=== PATIENT | female | born 1980 | race Caucasian/White ===

== ENCOUNTER 2017-03-26 15:15 | Inpatient (IN) ==
[2017-03-26 16:22] LABS: MANUAL DIFF NEEDED? NO
[2017-03-26 16:35] LABS: BASO% 0.4 % (0.0-0.8); EOS# 0.06 X1000 (0.0-0.7); EOS% 0.7 % (0.0-10.0); HEMOGLOBIN 15.4 g/dL (12.0-16.0); IMM GRAN# 0.03 X1000 (0.0-0.04); IMM GRAN% 0.4 % (0.0-0.5); LYMPH# 1.37 X1000 (1.2-3.4); LYMPH% 16.5 % (20.5-51.1); MCH 28.3 PG (27-31); MCHC 31.4 g/dL (33-37); MCV 89.9 FL (81-99); MONO# 0.71 X1000 (0.11-0.59); MONO% 8.6 % (1.7-9.3); MPV 9.1 FL (7.4-10.4); NEUT% 73.4 % (42.2-75.2); PLT 213 X1000 (130-400); RBC 5.45 XMIL (4.2-5.4)
[2017-03-26 16:38] LABS: INR 0.96; PTT 28.5 Seconds (22.0-36.0)
[2017-03-26] MEDS ORDERED: SOLU-MEDROL IV ONE (16:38)
[2017-03-26] MEDS ORDERED: DUONEB (A & A) INH ONE (16:38)
[2017-03-26 16:48] LABS: AGAP 9; ALBUMIN 3.3 g/dL (3.5-5.0); ALKALINE PHOSPHATASE 154 U/L (32-104); BUN 14 mg/dL (8-22); CALCIUM 8.9 mg/dL (8.8-10.2); CHLORIDE 91 mmol/L (98-107); CK PROFILE 46 U/L (24-173); COSMO 271; GOT 18 U/L (10-30); GPT 31 U/L (10-36); MAGNESIUM 1.6 mg/dL (1.5-2.7); POTASSIUM 4.1 mmol/L (3.5-5.1); SODIUM 130 mmol/L (136-145); TCO2 30 mmol/L (25-35); TOTAL BILIRUBIN 0.18 mg/dL (0.20-1.00); TOTAL PROTEIN 6.8 g/dL (6.3-8.3)
--- NOTE | 2017-03-26 16:49 | ED EKG INTERP ---
This chart was entered by Margaret Sood Scribe, acting as scribe for Michelle Arias MD. EKG Interpretation - EKG Time of EKG reading by physician:: 15:29 EKG Read and Signed by:: Michelle Arias EKG Interpretation (*Must complete 3 of following elements*): Abnormal (low- voltage QRS. possible anterolateral infarct, age undetermined.) Rate: 100 Rhythm: sinus QRS: other (low voltage QRS) This chart was documented by the indicated scribe, (Margaret Sood, Jorgeibe) and accurately reflects the services I performed and decisions made by me, Michelle Arias MD, as attested by the provider's signature.
--- NOTE | 2017-03-26 17:05 | EKG Report ---
Test Performed on : 03/26/2017 3:29:29 PM Test Reason : SOB Blood Pressure : / mmHG Vent. Rate : 100 BPM Atrial Rate : 100 BPM P-R Int : 146 ms QRS Dur : 068 ms QT Int : 354 ms P-R-T Axes : 041 050 053 degrees QTc Int : 456 ms Normal sinus rhythm. Low voltage QRS Possible Anterolateral infarct (cited on or before 02-AUG-2010) Abnormal ECG When compared with ECG of 09-JUN-2016 04:45, No significant change was found Unconfirmed Result
[2017-03-26 17:10] LABS: ALLEN TEST YES; BE 7.9 mmoll (-3.0-3.0); BLOOD TYPE ARTERIAL; DRAW SITE R RADIAL; METHB 1.2 % (0.0-1.5); O2(CT) 18.2 mL/dL (15.0-23.0); PO2(98.6) 52 mmHg (60-100); SAMPLE BLOOD; SAO2 91.4 % (95.0-100.0); THB 15.6 g/dL (11.5-17.4); pH(98.6) 7.35 (7.35-7.45)
[2017-03-26 17:14] LABS: MODALITY ROOM AIR
[2017-03-26 17:15] LABS: PCO2(98.6) 66 mmHg (35-45)
--- NOTE | 2017-03-26 17:30 | PROVIDER DOCUMENTATION ---
This chart was entered by Margaret Sood Scribe, acting as scribe for Michelle Arias MD. HPI-Respiratory General - General Chief Complaint: Shortness of Breath Stated Complaint: TROUBLE BREATHING Time Seen by Provider: 03/26/17 16:15 Source: patient Allergies/Adverse Reactions: Patient Allergies Allergy/AdvReac Type Severity Reaction Status Date / Time Sulfa (Sulfonamide Allergy Intermediate HIVES Verified 03/26/17 16:11 Antibiotics) tramadol AdvReac Mild PSEUDOSEIZU Verified 03/26/17 16:11 RES Home Medications: Home Medication List Medication Instructions Recorded Confirmed Last Taken Type Insulin Glargine [Lantus] 30 unit SUBQ QHS #1 insuln.pen 08/08/16 03/26/17 Rx Insulin Lispro [Humalog] 30 unit SQ TID #1 cartridge 08/08/16 03/26/17 Rx - History of Present Illness-Resp Nature of Presenting Problem: 36 yo WF presents to ED with cc of SOB and swelling. Pt also reports that last night she had chest pain that radiated down her L arm, in addition to the SOB. She denies chest pain at this time. Pt reports she was on Lasix 40 mg x 1/day for 2 months but quit 14 days ago due to not seeing improvement. Pt has COPD but is not on O2 at home. Pt reports that she still smokes. Pt denies hx of CHF and states she has not had a stress test. Pt has hx of type 1 diabetes controlled with insulin but reports her sugar has been running high lately. Pt also reports generalized abdominal tenderness. Severity in ED: reports: moderate Onset/Duration: reports: abrupt, last night Timing: reports: still present Cough Quality/Degree: reports: productive cough Current Respiratory Medication Therapy: Initiated none Modifying Factors: improves with: oxygen Associated Symptoms: reports: chest pain/soreness (last night; resolved as of today), cough, shortness of breath Review of Systems - Adult - REVIEW OF SYSTEMS - ADULT Constitutional: reports: no symptoms reported. denies: chills, fever Eyes: reports: no symptoms reported. denies: blurred vision, double vision Ears, Nose, Mouth & Throat: reports: no symptoms reported. denies: ear pain, nose pain Cardiovascular: reports: chest pain (resolved prior to arrival) Respiratory: reports: cough, shortness of breath Gastrointestinal: reports: abdominal pain (generalized). denies: nausea, vomiting Genitourinary: reports: no symptoms reported. denies: dysuria, frequency Musculoskeletal: reports: no symptoms reported. denies: bone pain, joint pain Integumentary: reports: no symptoms reported. denies: hives, itching Neurological: reports: no symptoms reported. denies: dizziness/vertigo, loss of balance Psychiatric: reports: no symptoms reported. denies: anxiety, depression Endocrine: reports: no symptoms reported. denies: cold intolerance, heat intolerance Hematologic/Lymphatic: reports: no symptoms reported. denies: blood clots, lymphedema Allergic/Immunologic: reports: no symptoms reported. denies: allergic reactions , eczema All Other Systems: Reviewed and Negative Past History - Adult - PAST MEDICAL HISTORY-ADULT Review of Records: reports: Old Records Reviewed, Nursing Assessment Review, Medications Reviewed Major Childhood Illnesses: reports: denies history Cardiovascular: reports: HTN Respiratory: reports: COPD, sleep apnea, other (has home o2) Gastrointestinal: reports: Crohn's, GERD, inflammatory bowel disease, other ( followed by Dr. 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) Psychiatric: reports: anxiety, depression, psychiatric problems Endocrine/Immune: reports: Diabetes Other Conditions: reports: denies history - PRIOR SURGERIES/PROCEDURES Surgical/Procedure History: reports: appendectomy, cholecystectomy (01/2016), C- section, breast (lumpectomy, biopsy) - IMMUNIZATION STATUS Childhood Immunizations: UTD, See Nurse Assessment Flu Vaccine: See Nurse Assessment - FAMILY HISTORY Family History: reviewed, not pertinent Physical Exam-General - PHYSICAL EXAM-ADULT Initial Vital Signs Reviewed: Yes - CONSTITUTIONAL General Appearance: appears well, alert, mild distress - EYES Eyes: PERRL/EOMI, pink conjunctivae - HEAD, EARS, NOSE, MOUTH & THROAT HENMT: normocephalic/atraumatic, moist mucous membranes - NECK Neck: non-tender, full range of motion, supple - CARDIOVASCULAR Cardiovascular: tachycardia - GASTROINTESTINAL (ABDOMEN) Abdominal Exam: soft, tenderness (generalized) - LYMPHATIC Lymphatic: no adenopathy - MUSCULOSKELETAL Back Exam: normal inspection Extremity: normal range of motion, normal gait, no pedal edema - SKIN Integumentary: normal color, normal turgor - NEUROLOGIC Neurologic: grossly normal, no motor/sensory deficits - PSYCHIATRIC Psych/Mental Status: normal mood/affect, normal thought content, normal thought process, oriented x 3 Progress - PLAN OF CARE/RESULTS Progress/Plan/Lab Results: Vital Signs - 8 hr 03/26/17 15:34 03/26/17 16:36 Temperature 98.2 F Pulse Rate 108 H 97 H Respiratory Rate 22 22 Blood Pressure 128/82 O2 Sat by Pulse Oximetry 90 L 90 L Laboratory Results - last 24 hr 03/26/17 03/26/17 03/26/17 15:09 15:09 15:09 WBC 8.29 RBC 5.45 H Hgb 15.4 Hct 49.0 H MCV 89.9 MCH 28.3 MCHC 31.4 L RDW Std Deviation 15.2 H Plt Count 213 MPV 9.1 Immature Gran % (Auto) 0.4 Neut % (Auto) 73.4 Lymph % (Auto) 16.5 L Emmons % (Auto) 8.6 Eos % (Auto) 0.7 Baso % (Auto) 0.4 Immature Gran # (Auto) 0.03 Neut # (Auto) 6.09 Lymph # (Auto) 1.37 Emmons # (Auto) 0.71 H Eos # (Auto) 0.06 Baso # (Auto) 0.03 PT INR PTT (Actin FS) Specimen Type Sample Site pH pCO2 pO2 HCO3 Base Excess Oxyhemoglobin ABG O2 Sat (Calculated) ABG O2 Saturation ABG Carboxyhemoglobin ABG Methemoglobin Jaiden Test A-a O2 Difference Total Hemoglobin Lactate Blood Gas Modality FiO2 % Sodium 130 L Potassium 4.1 Chloride 91 L Carbon Dioxide 30 Anion Gap 9 BUN 14 Creatinine 0.6 Estimated GFR/1.73 m2 > 60 BUN/Creatinine Ratio 23 Glucose 273 H Calculated Osmolality 271 Calcium 8.9 Magnesium 1.6 Total Bilirubin 0.18 L AST 18 ALT 31 Alkaline Phosphatase 154 H Creatine Kinase 46 Troponin T [id number]-S-Zhihyyfgygv Pept 114 Total Protein 6.8 Albumin 3.3 L Globulin 3.5 Albumin/Globulin Ratio 0.9 Plasma Lactate 03/26/17 03/26/17 03/26/17 15:09 15:09 15:09 WBC RBC Hgb Hct MCV MCH MCHC RDW Std Deviation Plt Count MPV Immature Gran % (Auto) Neut % (Auto) Lymph % (Auto) Emmons % (Auto) Eos % (Auto) Baso % (Auto) Immature Gran # (Auto) Neut # (Auto) Lymph # (Auto) Emmons # (Auto) Eos # (Auto) Baso # (Auto) PT 10.0 INR 0.96 PTT (Actin FS) 28.5 Specimen Type Sample Site pH pCO2 pO2 HCO3 Base Excess Oxyhemoglobin ABG O2 Sat (Calculated) ABG O2 Saturation ABG Carboxyhemoglobin ABG Methemoglobin Jaiden Test A-a O2 Difference Total Hemoglobin Lactate Blood Gas Modality FiO2 % Sodium Potassium Chloride Carbon Dioxide Anion Gap BUN Creatinine Estimated GFR/1.73 m2 BUN/Creatinine Ratio Glucose Calculated Osmolality Calcium Magnesium Total Bilirubin AST ALT Alkaline Phosphatase Creatine Kinase Troponin T < 0.010 Imc-J-Squqxmpayba Pept Total Protein Albumin Globulin Albumin/Globulin Ratio Plasma Lactate 1.7 03/26/17 16:38 WBC RBC Hgb Hct MCV MCH MCHC RDW Std Deviation Plt Count MPV Immature Gran % (Auto) Neut % (Auto) Lymph % (Auto) Emmons % (Auto) Eos % (Auto) Baso % (Auto) Immature Gran # (Auto) Neut # (Auto) Lymph # (Auto) Emmons # (Auto) Eos # (Auto) Baso # (Auto) PT INR PTT (Actin FS) Specimen Type ARTERIAL Sample Site R RADIAL pH 7.35 pCO2 66 H* pO2 52 L HCO3 30.6 H Base Excess 7.9 H Oxyhemoglobin 83.1 L* ABG O2 Sat (Calculated) 18.2 ABG O2 Saturation 91.4 L ABG Carboxyhemoglobin 7.90 H* ABG Methemoglobin 1.2 Jaiden Test YES A-a O2 Difference 15.0 Total Hemoglobin 15.6 Lactate 1.20 Blood Gas Modality ROOM AIR FiO2 % 21.0 Sodium Potassium Chloride Carbon Dioxide Anion Gap BUN Creatinine Estimated GFR/1.73 m2 BUN/Creatinine Ratio Glucose Calculated Osmolality Calcium Magnesium Total Bilirubin AST ALT Alkaline Phosphatase Creatine Kinase Troponin T Jnw-[id number]-Dduqlpzfozs Pept Total Protein Albumin Globulin Albumin/Globulin Ratio Plasma Lactate Orders Category Date Time Status Cardiac Monitoring DIRECTED Care 03/26/17 16:14 Active ED: Urine Bedside ORDERED Care 03/26/17 16:19 Active Oxygen Therapy- ED Nursing DIRECTED Care 03/26/17 16:14 Active Saline Loc NOW Care 03/26/17 16:14 Active CHEST-2 VIEWS [RAD] Stat Exams 03/26/17 16:14 Ordered ABG [RESP] Routine Lab 03/26/17 16:38 Completed CBC WITH ELECTRONIC DIFF [HEME] Stat Lab 03/26/17 15:09 Completed CK PROFILE [SP CHEM] Stat Lab 03/26/17 15:09 Completed COMPREHENSIVE METABOLIC PANEL [CHEM] Stat Lab 03/26/17 15:09 Completed D-DIMER [CHEM] Stat Lab 03/26/17 15:09 Received LACTATE, PLASMA [CHEM] Stat Lab 03/26/17 15:09 Completed MAGNESIUM [CHEM] Stat Lab 03/26/17 15:09 Completed PRO B-NATRIURETIC PEPTIDE Stat Lab 03/26/17 15:09 Completed PROTIME WITH INR [COAG] Stat Lab 03/26/17 15:09 Completed PTT [COAG] Stat Lab 03/26/17 15:09 Completed TROPONIN T Stat Lab 03/26/17 15:09 Completed Albuterol 2.5MG/Ipratrop 0.5MG [Duoneb (A & A)] Med 03/26/17 16:38 Discontinued 3 ml INH NOW ONE Methylprednisolone Sod Succ [Solu-Medrol] Med 03/26/17 16:38 Discontinued 125 mg IV NOW ONE Aerosol Treatments Routine Oth 03/26/17 16:38 Active Aerosol Treatments Stat Oth 03/26/17 16:38 Active EKG [EKG] Stat Ther 03/26/17 16:14 Draft Result Diagrams: 03/26/17 15:09 03/26/17 15:09 - CONSULTS/PCP/HOSPITALIST Notification #1 *Consult/PCP/Hospitalist*: Dr. Marino Time Discussed: 17:50 Consult Disposition: Admit - CHANGE OF SHIFT REPORT (ED Provider) Time of Transfer: 18:00 Departure - Departure Time of Disposition Decision: 17:51 DIAGNOSIS: Respiratory distress, CO2 retention Disposition: ADMITTED INPATIENT 09 Certified Medical Emergency: Emergent Condition: Stable Referrals and Follow-Ups: Andreea Wright CRNP [Primary Care Provider] - - Critical Care Note This patient required my direct & personal management of CC.: No This chart was documented by the indicated scribe, (Margaret Sood Scribe) and accurately reflects the services I performed and decisions made by me, Michelle Arias MD, as attested by the provider's signature.
[2017-03-26] MEDS ORDERED: NS 1,000 ML IV SCH (19:03)
--- NOTE | 2017-03-26 19:13 | HISTORY AND PHYSICAL ---
CHIEF COMPLAINT: Shortness of breath. HISTORY OF PRESENT ILLNESS: Mrs. Tan is an unfortunate 36-year-old, female with a history of morbid obesity, type 1 diabetes, COPD, bipolar disorder and others, who presents with worsening shortness of breath over the past month and a half. Acutely worse last night. Patient states she is essentially chronically short of breath but yesterday she started having fairly severe shortness of breath which made it difficult for her to do most any of her activities of daily living. Mrs. Tan also reports that she has chest pain quite often that occurs randomly. It is not associated with exertion. She had an acute episode last night that woke her up at around 1 in the morning. This was described as midsternal, radiating down to the left arm. It lasted hours until she came to the ER and was given oxygen which relieved the pain. This is not associated with any nausea, vomiting, or diaphoresis. She reports worsening dyspnea with cough and clear sputum production. She reports a low-grade fever. She also reports lower extremity edema and orthopnea. Mrs. Tan has multiple comorbidities that are untreated secondary to her social situation. She has not seen Dr. Macario in multiple months because she does not have any way to get to his office. She continues to smoke a pack and half to 2 packs a day and she is not on any current antihypertensives or any antihyperlipidemic. In fact the only medicine that she does take on a regular basis is her insulin. Mrs. Tan states that she lives alone and is having a difficult time doing simple activities of daily living such as wiping herself after she has a bowel movement because she cannot. She came to the ER today for evaluation. Her ABG showed hypercarbic respiratory failure and hypoxemia with a carboxyhemoglobin of almost 8. The rest of her laboratory data is unremarkable and she still has a chest x-ray that is pending. Troponins are negative and her EKG shows sinus tachycardia without acute ST or T abnormalities. We are now going to admit her for further treatment and evaluation. PAST MEDICAL HISTORY: 1. Type 1 diabetes diagnosed at age 2. 2. COPD. 3. Obesity hypoventilation syndrome. 4. Hypertension. 5. Hyperlipidemia. 6. Glaucoma. 7. Neuropathy. 8. Left eye blindness. 9. Bipolar disorder. 10. Anxiety. 11. Nicotine dependence. 12. History of polysubstance dependence. PAST SURGICAL HISTORY: Patient has had multiple procedures done on her left eye. She has had a C- section, appendectomy, cholecystectomy, multiple cyst excisions from her chest. SOCIAL HISTORY: Patient is and she lives alone. She has a child but she does not have custody. She is on disability. FAMILY HISTORY: Noncontributory. REVIEW OF SYSTEMS: Fourteen-point review of systems obtained and found to be negative with the exception of the HPI. ALLERGIES: To sulfa and tramadol. HOME MEDICATIONS: Lantus 30 units subcu at bedtime and Humalog 30 units subcutaneous t.i.d. PHYSICAL EXAMINATION: VITAL SIGNS: Blood pressure is 128/82, heart rate is 108, respiratory rate is 22. O2 saturations 90% on room air. Temperature is 98.2 degrees. GENERAL: This is a morbidly obese, and disheveled appearing 36-year-old, female, lying in the hospital bed, tearful but in no acute distress. NEUROLOGIC: The patient is awake, alert, oriented without focal deficits. HEENT: Head is atraumatic and normocephalic. NECK: Supple. Trachea is midline. Oral mucosa is a bit dry. CHEST: Diminished throughout but otherwise clear to auscultation bilaterally. CV: Regular rate and rhythm. S1, S2 is noted. GI: Is soft and obese and nontender. EXTREMITIES: With trace edema. Pulses are palpable but diminished bilaterally. DIAGNOSTIC DATA: Chest x-ray is pending. WBC 8.29, hemoglobin 15.4, hematocrit 49, platelet count 213,000. INR 0.96. D-dimer 0.27. ABG on room air pH 7.35, CO2 66, O2 52, bicarb 30.6. Oxyhemoglobin 83.1, carboxyhemoglobin 7.9. Sodium 130, potassium 4.1, chloride 91, CO2 30. Anion gap 9. BUN 14. Creatinine 0.6. Glucose is 273. Calcium 8.9, bilirubin 0.18. AST 18, ALT 31, alkaline phosphatase 154. CK 46, troponin negative. Albumin 3.3. ASSESSMENT AND PLAN: 1. Acute hypercarbic respiratory failure: This is multifactorial secondary to COPD exacerbation, hypoventilation syndrome and continued nicotine dependence. We will start oxygen, nebulizers, steroids and antibiotics. We will also consult with Dr. Macario. 2. Chronic obstructive pulmonary disease exacerbation: As above. We will start Rocephin at around the clock and p.r.n. nebulizers, IV steroids and antibiotics. 3. Chest pain: Atypical but the patient certainly has multiple risk factors, so we will trend her enzymes, check an echocardiogram and make a decision on possible ischemic workup after all her enzymes have come back. We will make sure she is on aspirin and statin and hold the beta- cyndi for now given her COPD exacerbation. 4. Hyponatremia: We will check urine studies and treat accordingly. Overall she is hypovolemic to euvolemic so she is likely a bit dry. 5. Insulin-dependent diabetes mellitus: Will check hemoglobin A1c. Continue her home insulin and start pattern sugars and sliding scale insulin. 6. Hypertension: We will start the patient on lisinopril 5 mg daily given her comorbidities. 7. Hyperlipidemia: We will check a lipid panel and start on high intensity statin. 8. Bipolar disorder/anxiety: The patient is currently on a shot 1 time a month of some antipsychotic, not exactly sure. We are trying to ascertain the name of that. So for now, we will hold off on any medications unless the patient becomes acutely agitated. 9. Glaucoma. We will need to verify her eyedrops and we will continue those. Overall that is stable. She is not having any overt headache or eye pain. 10. Nicotine dependence: Patient has been advised to quit smoking. We will write a nicotine patch and continue daily cessation education. 11. Medical noncompliance: We have discussed the long-term risks of medical noncompliance along with nicotine cessation with the patient. She understands and we will consult social work for possible financial and possibly home health needs. 12. DVT prophylaxis with Lovenox. Further recommendations to follow. Dictated by MELISSA Michael for Alfredo Gunderson MD cc: MELISSA Michael MD
[2017-03-26] MEDS ORDERED: INSULIN PEN NEEDLES ONE (21:52)
[2017-03-26] MEDS: ASPIRIN PO SCH (21:55)
[2017-03-26] MEDS: LOVENOX SUBQ SCH (21:55)
[2017-03-26] MEDS: NICODERM PATCH TD SCH (21:55)
[2017-03-26] MEDS: ROCEPHIN 1 GM/NS 1 GM/50 ML IVPB IV SCH (21:55)
[2017-03-26] MEDS: LANTUS SUBQ SCH (21:56)
[2017-03-26] MEDS: LIPITOR PO SCH (21:58)
[2017-03-26] MEDS: HUMALOG SUBQ SCH (22:38)
[2017-03-27] MEDS: SOLU-MEDROL IV SCH ×3 (02:38→18:30)
[2017-03-27] MEDS ORDERED: TYLENOL PO PRN (03:45)
[2017-03-27 05:07] LABS: HEMATOCRIT 49.7 % (37.0-47.0); HEMOGLOBIN 15.8 g/dL (12.0-16.0); MCH 28.1 PG (27-31); MCHC 31.8 g/dL (33-37); MCV 88.3 FL (81-99); MPV 9.7 FL (7.4-10.4); RBC 5.63 XMIL (4.2-5.4)
[2017-03-27 05:41] LABS: AGAP 14; BUN 15 mg/dL (8-22); CALCIUM 8.7 mg/dL (8.8-10.2); CHLORIDE 95 mmol/L (98-107); COSMO 290; HDL 60 mg/dL (45-65); LDL 72 mg/dL; POTASSIUM 4.5 mmol/L (3.5-5.1); SODIUM 136 mmol/L (136-145); TCO2 27 mmol/L (25-35); TRIGLYCERIDES 71 mg/dL (35-135); VLDL 14 mg/dL
[2017-03-27] MEDS: HUMALOG SUBQ SCH ×5 (06:05→20:39)
--- NOTE | 2017-03-27 07:48 | Diag Imaging Result Doc PS360 ---
CHEST-2 VIEWS - 03/26/2017 INDICATION: CP TECHNIQUE: COMPARISON: 01/23/2017 FINDINGS: Heart size is slightly enlarged. Pulmonary vascularity is grossly normal. No focal infiltrates, pneumothorax, or pleural effusion. IMPRESSION: Cardiomegaly. Electronically signed by Marc Oshea 03/27/2017 7:46 AM
[2017-03-27] MEDS ORDERED: INSULIN LISPRO 30 UNIT SQ SCH (09:00)
[2017-03-27] MEDS: LANTUS SUBQ SCH ×2 (10:24→20:39)
[2017-03-27] MEDS: NICODERM PATCH TD SCH (10:24)
[2017-03-27] MEDS: ASPIRIN PO SCH (10:24)
[2017-03-27] MEDS: PRINIVIL PO SCH (10:25)
--- NOTE | 2017-03-27 12:34 | CONSULTATION ---
DATE OF CONSULTATION: 03/27/2017 REFERRING PHYSICIAN: Dr. Alfredo Gunderson. CHIEF COMPLAINT: Evaluation for chronic obstructive pulmonary disease, sleep apnea, chronic respiratory failure. HISTORY OF PRESENTING ILLNESS: Ms. Tan is known to our practice. She is a 36-year-old female with bipolar disorder, depression, COPD, diabetes, morbid obesity, sleep apnea, and she does not have a CPAP machine I believe because of difficulty with her insurance, Medicaid, to provide it for her to my best knowledge. In any case, Ms. Tan came into the hospital with shortness of breath. PAST MEDICAL HISTORY: Polysubstance abuse, active smoker, anxiety, bipolar disorder, depression, left eye blindness, neuropathic glaucoma, hyperlipidemia, hypertension, obesity, and sleep apnea, COPD, type 1 diabetes. PAST SURGICAL HISTORY: Appendectomy, section, multiple cyst excisions. SOCIAL HISTORY: Active smoker, lives alone. Needs CPAP machine but does not have it because of her insurance, and we tried different promotional advertising assistant programs in the past. FAMILY HISTORY: COPD. REVIEW OF SYSTEMS: As detailed in history of presenting illness, otherwise, noncontributory. ALLERGIES: Possibly to tramadol, sulfa, antibiotics. MEDICATIONS IN THE HOSPITAL: Reviewed, and they include 1. Ceftriaxone. 2. Lovenox for DVT prophylaxis. 3. Insulin. 4. Prinivil. 5. Solu-Medrol. 6. Tylenol. PHYSICAL EXAMINATION: Vital Signs: Noted. General: Awake. Emotions are a little labile, and she is easy to tear. Head and Neck: Trachea midline. Chest: Reduced air entry. Cardiac: S1, S2. Abdomen: Nontender. Extremity Examination: +1 pedal edema. Neurologic: Awake, communicative. LABORATORY AND INVESTIGATIONS: ABG, CBC, CMP, chest x-ray reviewed. pH 7.35, pCO2 of 66, PO2 of 52. Chest x-ray shows cardiomegaly. ASSESSMENT AND PLAN: A 36-year-old female with 1. Chronic respiratory failure. 2. Sleep apnea. 3. Chronic obstructive pulmonary disease. 4. Shortness of breath. She does not have a home CPAP machine because of her insurance not providing it, and we have tried promotional advertising assistant programs in the past. She is an active smoker and agrees with steroids, antibiotics, and current management. We will add BiPAP in the hospital. Thank you for the courtesy of this consult. cc: Luis Macario MD
--- NOTE | 2017-03-27 16:07 | PROGRESS NOTE ---
DATE: 03/27/2017 SUBJECTIVE: Ms. Tan is breathing a little better. She is concerned that she is not able to wipe herself and needs some help with cleaning. Her stools are loose. OBJECTIVE: Vital signs: Temperature 98.3 degrees, pulse 64, respirations 17, blood pressure 127/60. HEENT: Pupils are equal and round. Lungs: Clear in all lung pinon. Cardiovascular: Regular rhythm and rate, without murmur or S3. Abdomen: Soft. Skin: Warm and dry. LABORATORY: White count 13,100, hematocrit 49, platelet count 203,000. Chemistry: Sodium 136, potassium 4.5, chloride 95, bicarbonate 27, BUN 15, creatinine 0.7, and blood sugar was 411. Blood sugars have been running a little high, 400s and 300s. ASSESSMENT AND PLAN: 1. By way of review, I think this is a patient of MELISSA Yepez. A 36-year-old white female with history of morbid obesity, diabetes mellitus type 1, chronic obstructive pulmonary disease, bipolar disorder, and others, who presented with worsening shortness of breath over the last 1-1/2 months, acutely worse last night. The patient states she has essentially been chronically short of breath. Reports that she has some chest pain quite often that occurs. She was admitted with acute hypercarbic respiratory failure, multifactorial, chronic obstructive pulmonary disease exacerbation, hypoventilation with obesity, and nicotine dependence. Started her on O2, nebulizers, steroids, and antibiotics. 2. Chronic chronic obstructive pulmonary disease exacerbation, on Rocephin and IV steroids. 3. Chest pain, nonspecific. Multiple risk factors for musculoskeletal-type pain. Continue to follow clinically. Does not appear to have signs of cardiac ischemia. 4. Hyponatremia, supplemented. 5. Insulin-dependent diabetes mellitus. We will continue just sugars. They are running a little high at this time, so will follow with pattern sugars and sliding scale. 6. Hypertension. Blood pressure well controlled. 7. Hyperlipidemia. 8. Bipolar disorder. 9. Nicotine dependence, on nicotine patch, I believe. REVIEW OF ORDERS: I do not know that I see any change at this point. She is on Tylenol, aspirin 81 mg a day, Lipitor 40 mg at bedtime, Lantus 30 units subcutaneously at bedtime and 25 units daily, Prinivil 5 mg a day, methylprednisolone 60 mg IV q.8 hours, nicotine patch 21 mg a day, normal saline at 75 mL an hour, and Rocephin 1 g q.24 hours. cc: Jaiden Poole MD
--- NOTE | 2017-03-27 17:21 | ECHO REPORT ---
ORDER DATE: 03/26/2017 ECHOCARDIOGRAM: MEASUREMENTS: Left ventricular end-diastolic diameter 4.9, end systolic diameter 3.2, septal thickness 1.0, posterior wall thickness 1.0, left atrium 3.2, aortic root 3.2. SUMMARY: 1. Technically difficult study due to limited acoustic window quality. Intravenous echo contrast agent Definity was administered to enhance endocardial definition and for purposes of assessment of left ventricular systolic function. 2. Aortic, mitral, tricuspid and pulmonic valves are without structural multi evident with trace mitral regurgitation and trace tricuspid regurgitation. Peak instantaneous gradient across aortic valve is less than 10 mmHg. There is estimated systolic PA pressure by Doppler is 20- 25 mmHg. Aortic root is normal size. 3. Normal left ventricular dimensions suggested. Estimated left ventricular ejection fraction appears to be least 55%. No regional wall motion abnormalities are evident. Left atrium, right atrium and right ventricle normal size with normal right ventricular systolic function. 4. No pericardial effusion. 5. Inferior vena cava not seen. 6. Sinus rhythm during study. CONCLUSIONS: 1. Technically difficult study. 2. No significant valvular abnormality evident. 3. Normal left ventricular systolic function without wall motion abnormality evident. cc: MD Kyle Wahl CRNP
[2017-03-27] MEDS: LOVENOX SUBQ SCH (20:38)
[2017-03-27] MEDS: LIPITOR PO SCH (20:38)
[2017-03-27] MEDS: ROCEPHIN 1 GM/NS 1 GM/50 ML IVPB IV SCH (20:38)
[2017-03-28] MEDS: SOLU-MEDROL IV SCH ×2 (00:31→08:27)
[2017-03-28 06:22] LABS: HEMATOCRIT 49.3 % (37.0-47.0); HEMOGLOBIN 15.6 g/dL (12.0-16.0); MCH 28.2 PG (27-31); MCHC 31.6 g/dL (33-37); MPV 9.5 FL (7.4-10.4); RBC 5.54 XMIL (4.2-5.4)
[2017-03-28] MEDS ORDERED: INSULIN PEN NEEDLES ONE (06:27)
[2017-03-28] MEDS: HUMALOG SUBQ SCH ×2 (06:29→11:18)
[2017-03-28 06:45] LABS: AGAP 11; BUN 15 mg/dL (8-22); CALCIUM 8.5 mg/dL (8.8-10.2); CHLORIDE 94 mmol/L (98-107); COSMO 286; POTASSIUM 5.1 mmol/L (3.5-5.1); SODIUM 133 mmol/L (136-145); TCO2 28 mmol/L (25-35)
[2017-03-28] MEDS: PRINIVIL PO SCH (08:26)
[2017-03-28] MEDS: ASPIRIN PO SCH (08:27)
[2017-03-28] MEDS: LANTUS SUBQ SCH (08:27)
[2017-03-28] MEDS: NICODERM PATCH TD SCH (08:27)
[2017-03-28 09:46] LABS: ALLEN TEST YES; BE 5.2 mmoll (-3.0-3.0); BLOOD TYPE ARTERIAL; DRAW SITE R RADIAL; METHB 0.9 % (0.0-1.5); O2(CT) 21.7 mL/dL (15.0-23.0); PO2(98.6) 80 mmHg (60-100); SAMPLE BLOOD; SAO2 96.7 % (95.0-100.0); THB 16.3 g/dL (11.5-17.4); pH(98.6) 7.34 (7.35-7.45)
[2017-03-28 09:49] LABS: MODALITY CANNULA; PCO2(98.6) 62 mmHg (35-45)
[2017-03-28 12:11] VITALS: BP 146/61
--- NOTE | 2017-03-29 04:52 | DISCHARGE SUMMARY ---
ADMISSION DATE: 03/26/2017 DISCHARGE DATE: 03/28/2017 DISPOSITION: Home. FOLLOWUP: 1. Dr. Macario. 2. Ms. Andreea Wright. CONSULTATIONS DURING THIS ADMISSION: Pulmonary medicine was consulted. Patient was seen by Dr. Macario. INVASIVE PROCEDURES DONE DURING THIS ADMISSION: None. IMAGING STUDIES OF SIGNIFICANCE: A chest x-ray was done which only showed cardiomegaly. An echocardiogram was done that showed a technically difficult study. No significant valvular abnormality and no left ventricular systolic function abnormality was noted. ADMISSION DIAGNOSES: 1. Acute hypercarbic respiratory failure. 2. Chronic obstructive pulmonary disease. 3. Hyponatremia. DISCHARGE DIAGNOSES: 1. Acute on chronic respiratory failure (both hypercarbic and hypoxemic). 2. Chronic obstructive pulmonary disease exacerbation. 3. Active tobacco use. 4. Morbid obesity. 5. Sleep apnea. 6. Obesity hypoventilation syndrome. 7. Insulin-dependent diabetes mellitus. 8. Dyslipidemia. 9. Bipolar/anxiety disorder. DISCHARGE MEDICATIONS: 1. Insulin glargine 30 units at night and 25 units in the morning. 2. Gabapentin 600 b.i.d. 3. Losartan 100 mg daily. 4. Atorvastatin 40 mg at bedtime. 5. Prednisone 20 mg daily. 6. Aspirin 81 mg daily. 7. Azithromycin 250 p.o. daily. FOLLOWUP RECOMMENDATIONS: Patient will need to follow up with Dr. Macario. She also will be needing oxygen in the short-term since her PO2 was 52 and her saturation was also remarkably low on presentation. It has been improved on oxygen and she will need that at least for the short-term. The patient has been counseled on smoking cessation and adequate weight management. PRESENTING COMPLAINT: Shortness of breath. HISTORY OF PRESENTING COMPLAINT: Ms. Tan is a 36-year-old, female, morbidly obese, with a lot of multiple comorbidities who presented because of shortness of breath. The patient has been smoking more than a pack per day and she continues to smoke. She was initially evaluated and was found to be in COPD exacerbation. Was admitted for medical care. HOSPITAL COURSE: The patient responded pretty well to standard care with adequate pulmonary toilette, steroids, antibiotics, and bronchodilation therapy. Blood glucose was also a little out of control but, according to the nurses, patient has just been eating [id number] on which she was counseled. Upon presentation, the patient's carboxyhemoglobin level was over 8 which is consistent with active smoking and she has been counseled. Today, she refers to be feeling a whole lot better. Breathing has improved. Physical exam of chest, there is no more rhonchi. Her vitals have also been reviewed and all unremarkable. Lab work has also been reviewed. The patient is deemed stable to be discharged. She is going to be discharged in a very stable condition and she will follow up with Dr. Macario and Ms. Andreea Wright. At the time of discharge, there are not any pending labs or imaging studies. Time spent for discharge was 37 minutes. cc: Alfredo Gunderson MD
[2017-03-29] MEDS ORDERED: ZITHROMAX PO SCH (09:00)
[2017-03-29] MEDS ORDERED: PREDNISONE PO SCH (09:00)
== END 2017-03-28 16:20 | disposition home health service (06) ==
LOC: ED 15:15 → SUATTDRO 18:44 → 4N 18:44
PROVIDERS: ATTEND Internal Medicine

== ENCOUNTER 2018-12-08 14:37 | Inpatient (IN) ==
--- NOTE | 2018-12-08 15:43 | Diag Imaging Result Doc PS360 ---
SHOULDER-LEFT - 12/08/2018 INDICATION: fall TECHNIQUE: Four views COMPARISON: None FINDINGS: Bones are intact and normally aligned. Joint spaces and soft tissues are clear. IMPRESSION: Negative exam. Electronically signed by Marc Oshea 12/08/2018 3:41 PM
--- NOTE | 2018-12-08 15:44 | Diag Imaging Result Doc PS360 ---
FOOT COMPLETE LEFT - 12/08/2018 INDICATION: fall TECHNIQUE: Three views COMPARISON: 08/27/2015 FINDINGS: There is pedal edema. There are nondisplaced fractures of the bases of the second, third, and fourth metatarsals. No dislocation. IMPRESSION: Fractures through the second, third, and fourth metatarsal bases. Electronically signed by Marc Oshea 12/08/2018 3:42 PM
[2018-12-08] MEDS ORDERED: TYLENOL PO ONE (15:55)
[2018-12-08 17:06] LABS: BASO# 0.03 X1000 (0.0-0.2); BASO% 0.4 % (0.0-0.8); EOS# 0.12 X1000 (0.0-0.7); EOS% 1.6 % (0.0-10.0); IMM GRAN# 0.03 X1000 (0.0-0.04); IMM GRAN% 0.4 % (0.0-0.5); LYMPH# 1.69 X1000 (1.2-3.4); LYMPH% 21.9 % (20.5-51.1); MCH 27.7 PG (27-31); MCHC 30.2 g/dL (33-37); MCV 91.7 FL (81-99); MONO% 6.5 % (1.7-9.3); MPV 8.9 FL (7.4-10.4); NEUT# 5.34 X1000 (1.4-6.5); NEUT% 69.2 % (42.2-75.2); PLT 269 X1000 (130-400); RBC 4.69 XMIL (4.2-5.4); RDW 14.2 % (11.5-14.5); WBC 7.71 X1000 (4.8-10.8)
[2018-12-08] MEDS ORDERED: MORPHINE IV ONE (17:18)
[2018-12-08] MEDS ORDERED: ZOFRAN IV ONE (17:19)
[2018-12-08 17:38] LABS: ESTIMATED GFR > 60
[2018-12-08 17:39] LABS: AGAP 9; ALB/GLOB RATIO 1.4; ALBUMIN 3.9 g/dL (3.5-5.0); ALKALINE PHOSPHATASE 128 U/L (32-104); BUN 13 mg/dL (8-22); CALCIUM 9.4 mg/dL (8.8-10.2); CHLORIDE 89 mmol/L (98-107); CK PROFILE 59 U/L (24-173); COSMO 282; CREATININE 0.5 mg/dL (0.5-0.9); GLUCOSE 240 mg/dL (70-104); GOT 22 U/L (10-30); GPT 36 U/L (10-36); MAGNESIUM 1.8 mg/dL (1.5-2.7); POTASSIUM 4.3 mmol/L (3.5-5.1); SODIUM 137 mmol/L (136-145); TCO2 39 mmol/L (25-35); TOTAL BILIRUBIN 0.27 mg/dL (0.20-1.00); TOTAL PROTEIN 6.7 g/dL (6.3-8.3)
[2018-12-08] MEDS ORDERED: LASIX IV ONE (17:58)
--- NOTE | 2018-12-08 18:35 | Diag Imaging Result Doc PS360 ---
CT HEAD/C-SPINE W/O CONTRAST - 12/08/2018 INDICATION: fall COMPARISON: None FINDINGS: Head CT: The ventricles and sulci are normal in size and contour. No intracranial mass or hemorrhage. The skull is intact. The sinuses, mastoids, and middle ears are clear. Cervical spine: Alignment is anatomic. Vertebral body heights and intervertebral disc spaces are preserved. Neural foramen are patent. Soft tissues are clear. IMPRESSION: Negative exam. This exam was performed using automated exposure control, adjustment of mA or kV according to patient size, and/or use of iterative reconstruction technique Electronically signed by Marc Oshea 12/08/2018 6:32 PM
--- NOTE | 2018-12-08 18:36 | Diag Imaging Result Doc PS360 ---
CHEST-2 VIEWS - 12/08/2018 INDICATION: SOB COMPARISON: 11/30/2018 FINDINGS: The lungs are normally expanded and clear. Heart size and mediastinal contours are normal. No pneumothorax or pleural effusion. IMPRESSION: Negative exam. Electronically signed by Marc Oshea 12/08/2018 6:34 PM
[2018-12-08 19:38] LABS: URINE SOURCE CLEAN CATCH
[2018-12-08 19:42] LABS: BILIRUBIN URINE NEGATIVE (NEGATIVE); BLOOD URINE NEGATIVE (NEGATIVE); COLOR YELLOW; GLUCOSE URINE NEGATIVE (NEGATIVE); KETONE URINE NEGATIVE (NEGATIVE); LEUKOCYTES URINE NEGATIVE (NEGATIVE); NITRITE URINE NEGATIVE (NEGATIVE); PROTEIN URINE 50 mg/dL (NEGATIVE); SP GRAVITY URINE 1.007; TURBIDITY URINE CLEAR (CLEAR); UR EPITHELIAL CELLS <10 /HPF (<10); URINE BACTERIA NEGATIVE /HPF; URINE RBC <10 /HPF (<10); URINE WBC <10 /HPF (<10); UROBILINOGEN URINE NORMAL (NORMAL)
--- NOTE | 2018-12-08 21:44 | HISTORY AND PHYSICAL ---
HISTORY OF PRESENT ILLNESS: This Dominick is a patient of MELISSA Yepez and Dr. Giovanni Arroyo. She presents stating that for the last 2 weeks, really almost 4 weeks, but 2 weeks in particular she has gained more weight and it feels like she has gained fluid weight in general in her arms and her tummy and her feet. Dr. Arroyo had scheduled her to get an echocardiogram, but today she tripped and fell, and hurt her left foot and she hurt both her shoulders she said were already frozen and hurt her side, but mainly her foot. She is not able to walk and she came in by ambulance, but she is very concerned about shortness of breath, the fact that she can't ambulate. She is living with her mother who is taking care of her father who has a significant health problems and they will not be able to take care of her. She cannot bear weight and concerned about her increased swelling and shortness of breath. She denies any fever or chills. No pleuritic pain. No chest pressure. She has not had any cough or sputum production. Denies any gross hematuria, dysuria. No change in her bowels. PAST MEDICAL HISTORY: 1. COPD. She is on home oxygen. 2. Diabetes mellitus type 1. Parents are struggling to try and keep it under control. 3. Hypertension. 4. Hyperlipidemia. 5. Morbid obesity. She was last here in the hospital 11/14/2017 with shortness of breath. She does have home oxygen. PAST SURGICAL HISTORY: Cholecystectomy, appendectomy and eye surgery. ALLERGIES: Sulfa, tramadol. SOCIAL HISTORY: Over greater than 20 pack history of smoking. Alcohol use I think is occasional at this time. Denies any illicit drug use. FAMILY HISTORY: No history of coronary artery disease or renal disease. I think there is a distant history of diabetes. REVIEW OF SYSTEMS: General: She has gained some weight which she thinks is fluid. She is not sure how much. She has not weighed. She has denied any fever or chills. No change in hearing. HEENT: No change in hearing or visual acuity. Neck: No neck pain. No cervical adenopathy that she appreciates. Respiratory: Increased work of breathing. Increased dyspnea on exertion. Seems to have some increased orthopnea. No paroxysmal dyspnea reported. Cardiovascular: No chest pain or squeezing pressure or jaw pain. No palpitations. Gastrointestinal: No change in her bowels. Denies diarrhea. She does have some constipation which she has had for a while. Genitourinary: No gross hematuria or dysuria. Musculoskeletal and Neurologic: No focal complaints. Endocrinologic and Hematologic: No significant history. PHYSICAL EXAMINATION: VITAL SIGNS: In the emergency room: Temp is 98.8, pulse 92, respirations 18, blood pressure 136/53. She is on 2 L nasal cannula. Her weight is 314 pounds. Height is 5 feet 1 inch. Fingerstick was 255. HEENT: Pupils are equal and round. Conjunctivae is pink. Mucous membranes and gingiva are red and moist. CVP appears to be less than 6 cm. No distended neck veins. No cervical or supraclavicular adenopathy. LUNGS: Clear anterolateral and posterior. No wheezing at this time. Expiratory phase is equal to inspiratory phase. CARDIOVASCULAR: Regular rhythm and rate without murmur or S3. PMI nondisplaced. Carotid, radial, femoral pulses 2+ and symmetrical. ABDOMEN: Distended. Appears she has some ascites. She has some pitting edema on her arms and on her feet, would be at least 1+ pitting edema. SKIN: Warm and dry. I did not appreciate any rashes. I did not look at the sacral or perennial area. LABORATORY: White blood cell count 7710, hematocrit 43, platelet count 269,000. Sodium 137, potassium 4.3, chloride 89, bicarb 39, BUN 13, creatinine 0.5, blood sugar 240, calcium 9.4, magnesium 1.8. AST is 22, ALT is 36, alkaline phosphatase 128, CPK is 59. Troponin is less than 0.01. Albumin is 3.9. Urinalysis was unremarkable. Chest x-ray. Really negative exam. Lungs are normally expanded and clear. Heart size and mediastinal contours are normal. No pneumothorax or pleural effusion. X-ray of her left foot: Three views. Fractures through the 2nd, 3rd and 4th metatarsal bones. Her head and cervical spine CT: Negative exam. Left shoulder x-ray: Negative exam as well. No sign of fractures. LIST OF MEDICATIONS: She is on: 1. Lipitor 40 mg a day. 2. She takes DuoNebs I think q.6 hours. 3. Flexeril 10 mg a day. 4. Lasix 40 mg b.i.d. 5. Neurontin 600 mg b.i.d. 6. Lantus 48 units subcu at bedtime. 7. Xalatan eyedrops 1 drop to the right eye daily. 8. Losartan 100 mg a day. 9. Meloxicam 1 a day. 10. Nicotine patch 21 mg daily. 11. Travatan eyedrops to the right I think at bedtime. ASSESSMENT AND PLAN: 1. She has significant fractures in her left foot and, given her obesity, she is going to probably need to pursue going to rehab. Her parents cannot lift her or take care of her. I will get Orthopedic to look at those fractures. I am not sure if she needs to be in a boot or cast. 2. Anasarca. Increased fluid. She does not seem to have significant pulmonary venous hypertension, but she does have significant fluid in her arms, in her belly and her legs. I do not see any sign of liver dysfunction. We are going to look at her echo and look at her left ventricular function. Her renal function also appears to be normal. 3. Diabetes mellitus type 1. We will check a hemoglobin A1c. We will put her on pattern sugars and sliding scale. See if we can get her sugars down under control. I think it has been difficult to control these. 4. Hypercholesterolemia. Continue her current medication. Atorvastatin 40 mg a day. 5. Morbid obesity. 6. Tobacco use. Will continue her nicotine patch. Have counseled her on the importance of quitting smoking. 7. COPD, on O2. I suspect she has high right-sided right ventricular pressures, pulmonary pressures and that this may be some cor pulmonale. But we will check the echo and we will switch her Lasix to 60 mg IV q.12 and see if we can diurese some off. 8. Lastly, diabetic neuropathy. Continue her Neurontin. cc: Jaiden Poole MD
[2018-12-08] MEDS ORDERED: NS 1,000 ML IV SCH (21:53)
[2018-12-08] MEDS ORDERED: LASIX PO SCH (21:53)
[2018-12-08] MEDS ORDERED: ZOFRAN IV PRN (21:53)
[2018-12-08] MEDS: DUONEB (A & A) INH SCH (22:45)
[2018-12-08] MEDS: NORCO-7.5 PO PRN (23:26)
[2018-12-08] MEDS: LIPITOR PO SCH (23:26)
[2018-12-08] MEDS: PRILOSEC PO SCH (23:26)
[2018-12-08] MEDS: NEURONTIN PO SCH (23:26)
[2018-12-08] MEDS: LASIX IV SCH (23:27)
--- NOTE | 2018-12-08 23:48 | PROVIDER DOCUMENTATION ---
This chart was entered by Pat Cagle Scribe, acting as scribe for Syd Martines CRNP. HPI-General Adult - General Chief Complaint: Fall Stated Complaint: EXTREMITY PAIN Time Seen by Provider: 12/08/18 15:04 Source: patient, family Allergies/Adverse Reactions: Patient Allergies Allergy/AdvReac Type Severity Reaction Status Date / Time Sulfa (Sulfonamide Allergy Intermediate HIVES Verified 11/24/18 15:57 Antibiotics) tramadol AdvReac Mild PSEUDOSEIZU Verified 11/24/18 15:57 RES Home Medications: Home Medication List Medication Instructions Recorded Confirmed Last Taken Type Losartan Potassium 100 mg PO QHS 03/28/17 12/08/18 12/07/18 20:00 History Gabapentin [Neurontin] 600 mg PO BID 08/19/17 12/08/18 12/08/18 07:00 History Insulin Glargine [Lantus] 48 unit SUBQ BID 11/14/17 12/08/18 12/08/18 07:00 History Travoprost [Travatan Z] 1 drop RIGHT EYE HS 11/14/17 12/08/18 12/07/18 20:00 History Brimonidine 0.15% Ophth Soln 1 drop RIGHT EYE DAILY 12/08/18 12/08/18 12/08/18 07:00 History [Alphagan P 0.15% Ophth Soln] Clonidine HCl 0.1 mg PO QHS 12/08/18 12/08/18 12/07/18 20:00 History Fluticasone 50 Mcg Nasal [place] 1 puff IH BID 12/08/18 12/08/18 12/08/18 07:00 History [Flonase] Fluticasone/Vilanterol [Breo 1 puff IH DAILY 12/08/18 12/08/18 12/08/18 07:00 History Ellipta 100-25 Mcg INH] Furosemide [Lasix] 40 mg PO BID 12/08/18 12/08/18 12/08/18 History Hydrocodone/Acetaminophen 1 tab PO TID 12/08/18 12/08/18 12/08/18 07:00 History [Hydrocodone-Acetamin 5-325 mg] Hydroxyzine HCl 100 mg PO QHS 12/08/18 12/08/18 12/07/18 20:00 History Insulin Aspart [Novolog Flexpen] 18 unit SQ AC 12/08/18 12/08/18 12/08/18 07:00 History Insulin Glargine,Hum.rec.anlog 48 units SQ BID 12/08/18 12/08/18 12/08/18 07:00 History [Lantus Solostar] Omeprazole 40 mg PO BID 12/08/18 12/08/18 12/08/18 07:00 History Travoprost [Travatan Z] 1 drop RIGHT EYE QHS 12/08/18 12/08/18 12/07/18 20:00 History Vortioxetine Hydrobromide 20 mg PO DAILY 12/08/18 12/08/18 12/08/18 07:00 History [Trintellix] - History of Present Illness -Gen Adult Nature of Presenting Problems: 38 yof presents with cc of fall this am with left foot pain. Pt reports she got up to walk across the room and fell, striking head, c/o left shoulder and left foot pain. Pt also complains of generalized edema and SOB. Reports gained 30lbs in 14 days. States lasix is not working. She is being followed by her pcp (Caitie Wright and Dr. Arroyo) for this. Reports was scheduled to have echo done today but was not able to due to her worsening sob. Pt is on home 02 2L. Location of Pain/Injury: reports: upper extremity, lower extremity Pain Radiation: reports: no radiation Quality of Pain: reports: sharp (States, "I always have pain in my shoulder, and its not any worse than it usually is.") Onset/Duration: reports: just prior to arrival Timing: reports: still present Context/Activities at Onset: reports: other (walking- reports generalized weakness as reason for fall) Modifying Factors: improves with: nothing Similar Symptoms Previously?: Yes Recently seen or treated by another doctor?: Yes Review of Systems - Adult - REVIEW OF SYSTEMS - ADULT Constitutional: denies: chills, fever, fatique Eyes: reports: no symptoms reported Ears, Nose, Mouth & Throat: denies: ear pain, sinus problem, throat pain Cardiovascular: reports: edema. denies: chest pain, irregular heart rate, orthopnea, syncope Respiratory: reports: cough, dyspnea on exertion, shortness of breath. denies: hemoptysis, pleurisy, wheezing Gastrointestinal: denies: abdominal pain, nausea, vomiting Genitourinary: denies: discharge, frequent UTI's, urgency Musculoskeletal: reports: see HPI, bone pain (left foot). denies: joint pain, joint swelling, neck pain Integumentary: denies: itching, mole changes, nail changes Neurological: reports: no symptoms reported Psychiatric: reports: no symptoms reported Endocrine: reports: no symptoms reported Hematologic/Lymphatic: reports: no symptoms reported Allergic/Immunologic: reports: no symptoms reported All Other Systems: Reviewed and Negative Past History - Adult - PAST MEDICAL HISTORY-ADULT Review of Records: reports: Nursing Assessment Review, Medications Reviewed Major Childhood Illnesses: reports: denies history Cardiovascular: reports: HTN Respiratory: reports: COPD, sleep apnea, other (has home o2) Gastrointestinal: reports: Crohn's, GERD, inflammatory bowel disease, other ( followed by Dr. 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) Psychiatric: reports: anxiety, depression, psychiatric problems Endocrine/Immune: reports: Diabetes Other Conditions: reports: denies history - PRIOR SURGERIES/PROCEDURES Surgical/Procedure History: reports: appendectomy, cholecystectomy (01/2016), C- section, breast (lumpectomy, biopsy) - IMMUNIZATION STATUS Childhood Immunizations: UTD, See Nurse Assessment Flu Vaccine: See Nurse Assessment - FAMILY HISTORY Family History: reviewed, not pertinent - SOCIAL HISTORY Smoking: other (former) Substance Use: none/never Physical Exam-General - PHYSICAL EXAM-ADULT Initial Vital Signs Reviewed: Yes - CONSTITUTIONAL General Appearance: alert, mild distress, obese. negative: lethargic, slow to respond - EYES Eyes: PERRL/EOMI, pink conjunctivae - HEAD, EARS, NOSE, MOUTH & THROAT HENMT: normocephalic/atraumatic, moist mucous membranes, normal ENT inspection, TMs normal, pharynx normal - NECK Neck: non-tender, full range of motion, supple, normal inspection. negative: C- spine tenderness - RESPIRATORY Respiratory: chest non-tender, lungs clear, normal breath sounds, no pleuratic chest pain, no respiratory distress, no accessory muscle use - CARDIOVASCULAR Cardiovascular: regular rate, rhythm, no gallop, no murmur, other (Generalized edema- bilateral lower extremities, feet, bilateral arms, hands, and abdomen. 3 + non-pitting generalized.) - GASTROINTESTINAL (ABDOMEN) Abdominal Exam: normal bowel sounds, non tender, soft, no organomegaly, distended. negative: guarding, rigid, rebound, tenderness - LYMPHATIC Lymphatic: no adenopathy - MUSCULOSKELETAL Back Exam: normal inspection, no CVA tenderness, no vertebral tenderness Extremity: no calf tenderness, normal capillary refill, pedal edema (3+ pitting edema Bilateral lower xtremities, and bilateral hands), tenderness (Dorsal aspect of left foot to palpation), other (left shoulder nontender to palpate). negative: calf tenderness, deformity, erythema Peripheral Pulses: dorsalis-pedis (R): 2+, dorsalis-pedis (L): 2+ - SKIN Integumentary: normal color, normal turgor, warm/dry. negative: abrasion(s), diaphoresis, decubitus, ecchymosis, erythema, laceration(s), mottled, pallor, petechiae, rash, warm - NEUROLOGIC Neurologic: automotive service advisor II-XII nml as tested, grossly normal, no motor/sensory deficits - PSYCHIATRIC Psych/Mental Status: normal mood/affect, normal thought content, normal thought process, oriented x 3 Progress - PLAN OF CARE/RESULTS Progress/Plan/Lab Results: Vital Signs - 8 hr 12/08/18 14:48 Temperature 98.8 F Pulse Rate 92 H Respiratory Rate 18 Blood Pressure 136/53 O2 Sat by Pulse Oximetry 96 Laboratory Results - last 24 hr 12/08/18 14:52 POC Glucose 255 H Orders Category Date Time Status ED: Urine Bedside ORDERED Care 12/08/18 15:53 Active CHEST-2 VIEWS [RAD] Stat Exams 12/08/18 15:[address] HEAD/C-SPINE W/O CONTRAST [CT] Stat Exams 12/08/18 15:54 Ordered FOOT COMPLETE LEFT [RAD] Stat Exams 12/08/18 14:59 Completed SHOULDER-LEFT [RAD] Stat Exams 12/08/18 14:59 Completed BNP [PRO B-NATRIURETIC PEPTIDE] Stat Lab 12/08/18 15:53 Uncollected CBC WITH DIFF [HEME] Stat Lab 12/08/18 15:52 Ordered CK PROFILE [SP CHEM] Stat Lab 12/08/18 15:52 Uncollected COMPREHENSIVE METABOLIC PANEL [CHEM] Stat Lab 12/08/18 15:52 Uncollected MAGNESIUM [CHEM] Stat Lab 12/08/18 15:52 Uncollected TROPONIN T Stat Lab 12/08/18 15:52 Uncollected UA NIMS W/REFLEX CULT [URINALYSIS] Stat Lab 12/08/18 15:53 Uncollected Acetaminophen [Tylenol] Med 12/08/18 15:55 Once 650 mg PO NOW ONE EKG [EKG] Stat Ther 12/08/18 15:52 Ordered Pt denies any recent surgeries, not taking hormones, denies hx of pe/dvt, Perc score 0. Discussed case with Dr. Poole at 1900 who is force variation equipment tender for Dr. Arroyo, patient's primary care physician who has been managing her edema and SOB. states pt does not meet criteria for admission based on testing results. Discussed this plan with pt and she became tearful and upset stating that she did not want to go home because she could not get around due to edema/generalized weakness and metatarsal fractures. Discussed case with Dr. Patel who recommended calling Dr. Poole back and notifying him of patient's concerns. Spoke with Dr. Poole who states he will come see patient. Result Diagrams: 12/08/18 16:40 12/08/18 16:40 - CONSULTS/PCP/HOSPITALIST Notification #1 *Consult/PCP/Hospitalist*: Dr. Poole Time Discussed: 17:00 ( states pt does not meet criteria for admission at this time.) #2 Consult: Dr. Poole Time Discussed: 20:00 Consult Disposition: Admit Departure - Departure Date of Disposition Decision: 12/08/18 Time of Disposition Decision: 20:00 DIAGNOSIS: SOB (shortness of breath), Generalized weakness Edema Qualifiers: Edema type: unspecified Qualified Code(s): R60.9 - Edema, unspecified Disposition: ADMITTED INPATIENT 09 Certified Medical Emergency: Emergent Condition: Stable - Critical Care Note This patient required my direct & personal management of CC.: No Attestation - Physician/ MARTA Attestation Patient care was provided by Advanced Practice Provider:: Yes Advanced Practice Provider:: Syd Martines Advanced Practice Provider documentation review:: The Mid-level provider documentation, treatment plan and medical decision making was reviewed by the physician who agrees with all treatment and medical decision making by the MLP. The physician spent face to face time with patient:: No Advanced Practice Provider documentation review:: Supervising physician onsite and consulted in the evaluation and care of this patient. The physician did not have a face to face encounter with the patient. This chart was documented by the indicated scribe, (Pat Cagle Scribe) and accurately reflects the services I performed and decisions made by Bobbi barrow DeLana C., CRNP, as attested by the provider's signature.
[2018-12-09] MEDS: BASAGLAR SUBQ SCH ×4 (00:33→22:24)
[2018-12-09] MEDS ORDERED: INSULIN PEN NEEDLES ONE (00:36)
[2018-12-09] MEDS: DUONEB (A & A) INH SCH ×5 (03:30→21:27)
[2018-12-09] MEDS: TRAVATAN 0.004% OPH SOLN RIGHT EYE SCH ×3 (06:24→23:26)
[2018-12-09 07:42] LABS: AGAP 11; ALB/GLOB RATIO 0.9; ALBUMIN 3.3 g/dL (3.5-5.0); ALKALINE PHOSPHATASE 101 U/L (32-104); BUN 14 mg/dL (8-22); CALCIUM 8.8 mg/dL (8.8-10.2); CHLORIDE 92 mmol/L (98-107); CK PROFILE 86 U/L (24-173); COSMO 276; CREATININE 0.6 mg/dL (0.5-0.9); ESTIMATED GFR > 60; GLUCOSE 163 mg/dL (70-104); GOT 47 U/L (10-30); GPT 42 U/L (10-36); MAGNESIUM 1.8 mg/dL (1.5-2.7); POTASSIUM 4.5 mmol/L (3.5-5.1); SODIUM 136 mmol/L (136-145); TCO2 33 mmol/L (25-35); TOTAL BILIRUBIN 0.27 mg/dL (0.20-1.00); TOTAL PROTEIN 6.8 g/dL (6.3-8.3)
--- NOTE | 2018-12-09 07:48 | EKG Report ---
Test Performed on : 12/09/2018 07:31:22 AM Test Reason : chest pain Blood Pressure : / mmHG Vent. Rate : 106 BPM Atrial Rate : 106 BPM P-R Int : 150 ms QRS Dur : 078 ms QT Int : 350 ms P-R-T Axes : 042 009 068 degrees QTc Int : 464 ms Sinus tachycardia. Possible Left atrial enlargement Borderline ECG When compared with ECG of 08-DEC-2018 20:31, (Unconfirmed) T wave inversion no longer evident in Inferior leads Clockwise rotation Confirmed by Dina VILLANUEVA, Giovanni Mitchell ([id number]) on 12/09/2018 4:54:36 PM
[2018-12-09 08:25] LABS: BASO# 0.03 X1000 (0.0-0.2); BASO% 0.3 % (0.0-0.8); EOS% 1.2 % (0.0-10.0); HEMATOCRIT 42.6 % (37.0-47.0); HEMOGLOBIN 12.4 g/dL (12.0-16.0); IMM GRAN# 0.04 X1000 (0.0-0.04); IMM GRAN% 0.5 % (0.0-0.5); LYMPH# 1.42 X1000 (1.2-3.4); LYMPH% 16.4 % (20.5-51.1); MCH 27.6 PG (27-31); MCHC 29.1 g/dL (33-37); MCV 94.7 FL (81-99); MONO# 1.15 X1000 (0.11-0.59); MONO% 13.3 % (1.7-9.3); MPV 8.7 FL (7.4-10.4); NEUT# 5.93 X1000 (1.4-6.5); NEUT% 68.3 % (42.2-75.2); PLT 264 X1000 (130-400); RDW 14.3 % (11.5-14.5); WBC 8.67 X1000 (4.8-10.8)
--- NOTE | 2018-12-09 08:25 | EKG Report ---
Test Performed on : 12/08/2018 8:31:11 PM Test Reason : SOB Blood Pressure : / mmHG Vent. Rate : 102 BPM Atrial Rate : 102 BPM P-R Int : 138 ms QRS Dur : 074 ms QT Int : 360 ms P-R-T Axes : 021 047 -04 degrees QTc Int : 469 ms Sinus tachycardia. Otherwise normal ECG When compared with ECG of 08-DEC-2018 20:29, (Unconfirmed) No significant change was found Unconfirmed Result
[2018-12-09] MEDS: HUMALOG SUBQ SCH ×3 (08:53→16:51)
[2018-12-09] MEDS: NEURONTIN PO SCH ×2 (08:57→22:22)
[2018-12-09] MEDS: MOBIC PO SCH (08:57)
[2018-12-09] MEDS: PRILOSEC PO SCH ×2 (08:57→22:22)
[2018-12-09] MEDS: FLEXERIL PO SCH (08:57)
[2018-12-09] MEDS: LASIX IV SCH ×2 (08:57→22:32)
[2018-12-09] MEDS: NICODERM PATCH TD SCH (08:57)
[2018-12-09] MEDS: COZAAR PO SCH (08:58)
[2018-12-09] MEDS: TRINTELLIX PO SCH (11:08)
[2018-12-09] MEDS: MAG-OX PO SCH (11:08)
[2018-12-09] MEDS: ALPHAGAN P 0.15% OPHTH SOLN RIGHT EYE SCH (11:08)
[2018-12-09] MEDS: XALATAN 0.005% OPH SOLN RIGHT EYE SCH (11:09)
[2018-12-09] MEDS: BREO ELLIPTA 100/25 MCG INH INH SCH (15:00)
[2018-12-09] MEDS: NORCO-7.5 PO PRN ×2 (15:26→22:25)
--- NOTE | 2018-12-09 16:35 | CONSULTATION ---
DATE OF CONSULTATION: 12/09/2018 REASON FOR CONSULTATION: Left foot and bilateral shoulder pain. HISTORY OF PRESENT ILLNESS: Giuseppe Tan is a 38-year-old female with a past medical history of morbid obesity, chronic obstructive pulmonary disease, diabetes mellitus type 1 , hypertension, and hyperlipidemia. Apparently she was scheduled to get an echocardiogram, but she tripped yesterday and fell. She ended up injuring the left foot and both shoulders at that time. She states the shoulders were already in pain. She says she has had pain in the shoulders for quite some time. She has been told she has frozen shoulders, but the left foot was definitely injured in the fall. She came to the [facility] Emergency Room by ambulance. She was pretty short of breath at the time of her arrival. She does not ambulate very much. She lives with her mother and father. She is unable to bear weight, especially on this left foot. She denies injury to the head at the time of fall or any other extremity. She denies dizziness, lightheadedness, chest pain, or loss of consciousness. PAST MEDICAL HISTORY: 1. Chronic obstructive pulmonary disease, on home O2. 2. Morbid obesity. 3. Diabetes mellitus, type 1. 4. Hypertension. 5. Hyperlipidemia. PAST SURGICAL HISTORY: 1. Cholecystectomy. 2. Appendectomy. ALLERGIES: 1. Sulfa. 2. Tramadol. SOCIAL HISTORY: She does admit to tobacco use. Occasional alcohol use. She denies any illicit drug use. FAMILY HISTORY: Noncontributory. REVIEW OF SYSTEMS: A 10 point review of systems was conducted and negative, except for what was mentioned above in the HPI. PHYSICAL EXAMINATION: Vital Signs: Temperature is 98.7 degrees, pulse is 108, blood pressure is 147/74. She is 97% on 2 L nasal cannula. General: This is a morbidly obese 38 -year-old female, who is in no acute distress, but is currently crying. HEENT: Pupils are equal , round, and reactive to light. Head is atraumatic, normocephalic. Cardiovascular: Regular rate and rhythm. Pulmonary: Breathing is even and nonlabored. Abdomen: She is morbidly obese. Musculoskeletal/Extremities: On left lower extremity exam, she does have some tenderness to palpation, especially over the 2nd and 3rd metatarsals. She does have some moderate edema. She has good sensation to the toes. She has a 1+ pedal pulse. There are no skin ulcerations or abrasions. On right upper extremity exam, she does have some tenderness to palpation to the right shoulder. She also has decreased range of motion. She does have good sensation to the upper extremity. Her hand intrinsics are intact. On left upper extremity exam, she does have tenderness to palpation on the left shoulder. She has decreased range of motion on this side, as well. I can passively move the shoulders fairly well. Her hand intrinsics are intact. DIAGNOSTIC STUDIES: A left 3-view x-ray does show fractures of the 2nd, 3rd, and 4th metatarsal bases. ASSESSMENT: Nondisplaced left 2nd, 3rd, and 4th metatarsal base fractures. PLAN: We can treat these nonoperatively. We will be nonweightbearing to this left lower extremity. I am going to put her in an orthopedic boot. She is likely going to try to go to a rehabilitation when she is discharged from the hospital. She really does not ambulate much previous to her fall. But she does do some transitioning. I have told her again strict nonweightbearing on this left side. We are going to have PT work with her on range of motion of the shoulders. If we can't help her there, we may send her to [facility] for other options. We are going to have her follow up in the office 2 weeks from discharge from the hospital. If there are any questions or concerns, please give us a call. Dictated by MELISSA Mcduffie for Marek Delcid MD cc: MELISSA Mcduffie MD Russell T. Barr, MD [facility]
[2018-12-09] MEDS: LIPITOR PO SCH (22:22)
[2018-12-09] MEDS: ATARAX PO PRN (22:26)
[2018-12-09] MEDS: SYNTHROID PO SCH (22:30)
--- NOTE | 2018-12-10 00:16 | ECHO REPORT ---
ORDER DATE: 12/09/2018 MEASUREMENTS: Left ventricular end diastolic diameter 4.7. End systolic diameter 2.9. Septal thickness 1.3. Posterior wall thickness 1.1. Aortic root 3.0. Left atrium 3.3. SUMMARY: 1. Technically difficult study due to limited acoustic window quality. Intravenous echo contrast agent Optison was utilized to enhance endocardial definition. 2. The aortic valve is trileaflet and opens normally on 2-dimensional images. Peak gradient across the aortic valve is 13 mmHg. Mitral and tricuspid valves are without evidence of structural abnormality, while pulmonic valve is not well-demonstrated. The aortic root is normal in size. 3. Normal left ventricular chamber size, with borderline concentric left hypertrophy is demonstrated. Estimated left ejection fraction appears to be at least 65%. No regional wall motion abnormalities are evident. The left atrium is normal in size. The right atrium and right ventricle are grossly normal in size. 4. No pericardial effusion. 5. Appearance of inferior vena cava suggests normal central venous pressure. CONCLUSIONS: 1. Technically difficult study. 2. No significant valvular abnormality evident. 3. Borderline concentric left hypertrophy with estimated left ventricular ejection fraction at least 65%. cc: MD Jaiden Wahl MD Russell T. Barr, MD
[2018-12-10] MEDS: DUONEB (A & A) INH SCH ×4 (03:24→20:40)
[2018-12-10] MEDS: HUMALOG SUBQ SCH ×3 (06:17→17:51)
[2018-12-10 07:50] LABS: AGAP 8; BUN 22 mg/dL (8-22); CALCIUM 8.8 mg/dL (8.8-10.2); CHLORIDE 91 mmol/L (98-107); COSMO 284; CREATININE 0.6 mg/dL (0.5-0.9); ESTIMATED GFR > 60; GLUCOSE 159 mg/dL (70-104); MAGNESIUM 1.8 mg/dL (1.5-2.7); POTASSIUM 4.7 mmol/L (3.5-5.1); SODIUM 139 mmol/L (136-145); TCO2 40 mmol/L (25-35)
[2018-12-10] MEDS ORDERED: DIAMOX SEQUELS PO ONE (08:19)
[2018-12-10] MEDS: BREO ELLIPTA 100/25 MCG INH INH SCH (08:41)
[2018-12-10] MEDS: TRINTELLIX PO SCH (10:53)
[2018-12-10] MEDS: NEURONTIN PO SCH ×2 (10:55→21:20)
[2018-12-10] MEDS: COZAAR PO SCH (10:55)
[2018-12-10] MEDS: NORCO-7.5 PO PRN ×2 (10:55→21:20)
[2018-12-10] MEDS: MOBIC PO SCH (10:56)
[2018-12-10] MEDS: PRILOSEC PO SCH ×2 (10:56→21:20)
[2018-12-10] MEDS: FLEXERIL PO SCH (10:56)
[2018-12-10] MEDS: BASAGLAR SUBQ SCH ×2 (10:56→23:04)
[2018-12-10] MEDS: MAG-OX PO SCH (10:56)
[2018-12-10] MEDS: XALATAN 0.005% OPH SOLN RIGHT EYE SCH (10:57)
[2018-12-10] MEDS: ALPHAGAN P 0.15% OPHTH SOLN RIGHT EYE SCH (10:57)
[2018-12-10] MEDS: NICODERM PATCH TD SCH (10:57)
[2018-12-10] MEDS: BUMEX PO SCH ×2 (11:23→21:20)
[2018-12-10] MEDS: LIPITOR PO SCH (21:20)
[2018-12-10] MEDS: TRAVATAN 0.004% OPH SOLN RIGHT EYE SCH ×2 (21:20)
[2018-12-10] MEDS: ATARAX PO PRN (21:20)
[2018-12-10] MEDS: SYNTHROID PO SCH (21:23)
[2018-12-11] MEDS: DUONEB (A & A) INH SCH ×4 (02:45→21:00)
[2018-12-11] MEDS: HUMALOG SUBQ SCH ×3 (06:25→16:24)
[2018-12-11] MEDS ORDERED: NARCAN IV ONE (08:52)
[2018-12-11 08:55] LABS: ALLEN TEST YES; BE 13.1 mmoll (-3.0-3.0); BLOOD TYPE ARTERIAL; O2(CT) 15.9 mL/dL (15.0-23.0); O2HB 91.9 % (95.0-99.0); PO2(98.6) 70 mmHg (60-100); SAMPLE BLOOD; SAO2 94.2 % (95.0-100.0); THB 12.3 g/dL (11.5-17.4)
[2018-12-11] MEDS ORDERED: NARCAN ONE (08:59)
[2018-12-11 09:01] LABS: MODALITY CANNULA; PCO2(98.6) 117 mmHg (35-45)
[2018-12-11] MEDS ORDERED: NARCAN IV PRN (09:29)
[2018-12-11] MEDS: BUMEX PO SCH ×3 (09:32→22:48)
[2018-12-11] MEDS: TRINTELLIX PO SCH (09:32)
[2018-12-11] MEDS: BASAGLAR SUBQ SCH (09:33)
[2018-12-11] MEDS: NEURONTIN PO SCH ×2 (09:33→22:45)
[2018-12-11] MEDS: FLEXERIL PO SCH (09:34)
[2018-12-11] MEDS: MAG-OX PO SCH (09:34)
[2018-12-11] MEDS: PRILOSEC PO SCH ×2 (09:34→22:45)
[2018-12-11] MEDS: COZAAR PO SCH (09:34)
[2018-12-11] MEDS: ALPHAGAN P 0.15% OPHTH SOLN RIGHT EYE SCH (09:35)
[2018-12-11] MEDS: XALATAN 0.005% OPH SOLN RIGHT EYE SCH (09:35)
[2018-12-11] MEDS: NICODERM PATCH TD SCH (09:35)
[2018-12-11 10:36] LABS: UR AMPHETAMINES QUAL NONE DETECTED (NONE DETECT); UR BARBITUATES QUAL NONE DETECTED (NONE DETECT); UR BENZODIAZEPIN QUAL NONE DETECTED (NONE DETECT); UR CANNABINOIDS QUAL NONE DETECTED (NONE DETECT); UR COCAINE QUAL NONE DETECTED (NONE DETECT); UR METHADONE QUAL PRESUMPTIVE POSITIVE (NONE DETECT); UR OPIATES QUAL PRESUMPTIVE POSITIVE (NONE DETECT); UR OXYCODONE QUAL NONE DETECTED (NONE DETECT); UR PCP QUAL NONE DETECTED (NONE DETECT)
[2018-12-11] MEDS: CELEBREX PO SCH (11:41)
[2018-12-11] MEDS ORDERED: CELEBREX PO SCH (12:00)
[2018-12-11 12:31] LABS: ALLEN TEST YES; BE 14.5 mmoll (-3.0-3.0); BLOOD TYPE ARTERIAL; METHB 0.5 % (0.0-1.5); O2(CT) 15.6 mL/dL (15.0-23.0); PO2(98.6) 55 mmHg (60-100); SAMPLE BLOOD; SAO2 91.1 % (95.0-100.0); THB 12.4 g/dL (11.5-17.4); pH(98.6) 7.35 (7.35-7.45)
[2018-12-11 12:37] LABS: PCO2(98.6) 79 mmHg (35-45)
[2018-12-11 12:39] LABS: MODALITY BI PAP; O2HB 89.5 % (95.0-99.0)
--- NOTE | 2018-12-11 15:49 | Diag Imaging Result Doc PS360 ---
EXAM: CHEST-1 VIEW 12/11/2018 HISTORY: SOB TECHNIQUE: AP upright portable at 1532 COMMENT: There is cardiomegaly. The patient's panniculus obscures some detail in the lower lung pinon but there does not appear to be any definite focal opacity or change since the previous examination of 12/08/2018. IMPRESSION: Cardiomegaly. Electronically signed by Donnell Sheriff 12/11/2018 3:46 PM
--- NOTE | 2018-12-11 15:50 | Diag Imaging Result Doc PS360 ---
EXAM: KUB ABDOMEN 12/11/2018 HISTORY: distended abdomen TECHNIQUE: KUB COMMENT: There is a fairly large amount of stool in the ascending and rectosigmoid colon. There is a nonspecific small bowel gas pattern. IMPRESSION: Constipation. Otherwise nonspecific abdomen. Electronically signed by Donnell Sheriff 12/11/2018 3:48 PM
[2018-12-11 16:17] LABS: BASO# 0.01 X1000 (0.0-0.2); BASO% 0.1 % (0.0-0.8); EOS# 0.03 X1000 (0.0-0.7); EOS% 0.3 % (0.0-10.0); HEMATOCRIT 40.4 % (37.0-47.0); HEMOGLOBIN 11.8 g/dL (12.0-16.0); IMM GRAN# 0.02 X1000 (0.0-0.04); IMM GRAN% 0.2 % (0.0-0.5); LYMPH# 0.87 X1000 (1.2-3.4); LYMPH% 9.9 % (20.5-51.1); MCH 27.5 PG (27-31); MCHC 29.2 g/dL (33-37); MCV 94.2 FL (81-99); MONO# 0.58 X1000 (0.11-0.59); MONO% 6.6 % (1.7-9.3); MPV 8.6 FL (7.4-10.4); NEUT# 7.28 X1000 (1.4-6.5); NEUT% 82.9 % (42.2-75.2); PLT 242 X1000 (130-400); RBC 4.29 XMIL (4.2-5.4); RDW 13.9 % (11.5-14.5); WBC 8.79 X1000 (4.8-10.8)
[2018-12-11 16:30] LABS: INR 0.92; PROTIME 13.1 Seconds (11.0-16.0)
[2018-12-11 16:31] LABS: PTT 37.3 Seconds (22.3-41.8)
[2018-12-11 16:40] LABS: ESTIMATED GFR > 60
[2018-12-11 16:45] LABS: AGAP 6; ALB/GLOB RATIO 1.3; ALBUMIN 3.8 g/dL (3.5-5.0); ALKALINE PHOSPHATASE 91 U/L (32-104); BUN 22 mg/dL (8-22); CALCIUM 9.3 mg/dL (8.8-10.2); CHLORIDE 89 mmol/L (98-107); COSMO 271; CREATININE 0.6 mg/dL (0.5-0.9); GLUCOSE 82 mg/dL (70-104); GOT 30 U/L (10-30); GPT 38 U/L (10-36); SODIUM 134 mmol/L (136-145); TCO2 39 mmol/L (25-35); TOTAL BILIRUBIN 0.33 mg/dL (0.20-1.00); TOTAL PROTEIN 6.8 g/dL (6.3-8.3)
[2018-12-11 18:17] LABS: URINE SOURCE CLEAN CATCH
[2018-12-11 18:21] LABS: BILIRUBIN URINE NEGATIVE (NEGATIVE); BLOOD URINE NEGATIVE (NEGATIVE); COLOR YELLOW; GLUCOSE URINE NEGATIVE (NEGATIVE); KETONE URINE NEGATIVE (NEGATIVE); LEUKOCYTES URINE NEGATIVE (NEGATIVE); NITRITE URINE NEGATIVE (NEGATIVE); PH URINE 7.5; PROTEIN URINE TRACE mg/dL (NEGATIVE); SP GRAVITY URINE 1.007; TURBIDITY URINE CLEAR (CLEAR); UROBILINOGEN URINE NORMAL (NORMAL)
[2018-12-11 18:22] LABS: UR EPITHELIAL CELLS <10 /HPF (<10); URINE BACTERIA 3+ /HPF; URINE RBC <10 /HPF (<10); URINE WBC <10 /HPF (<10)
[2018-12-11] MEDS: TYLENOL PO PRN (22:44)
[2018-12-11] MEDS: LIPITOR PO SCH (22:45)
[2018-12-11] MEDS: SYNTHROID PO SCH ×2 (22:45→22:46)
[2018-12-12] MEDS: BASAGLAR SUBQ SCH ×3 (00:01→21:55)
[2018-12-12] MEDS: TRAVATAN 0.004% OPH SOLN RIGHT EYE SCH ×3 (00:05→21:48)
[2018-12-12] MEDS: DUONEB (A & A) INH SCH ×4 (04:01→19:35)
[2018-12-12] MEDS: HUMALOG SUBQ SCH ×3 (06:50→16:18)
[2018-12-12 07:26] LABS: BASO# 0.02 X1000 (0.0-0.2); BASO% 0.3 % (0.0-0.8); EOS# 0.09 X1000 (0.0-0.7); EOS% 1.4 % (0.0-10.0); HEMATOCRIT 39.1 % (37.0-47.0); HEMOGLOBIN 11.5 g/dL (12.0-16.0); LYMPH# 1.36 X1000 (1.2-3.4); LYMPH% 20.9 % (20.5-51.1); MCH 27.4 PG (27-31); MCHC 29.4 g/dL (33-37); MCV 93.3 FL (81-99); MONO# 0.49 X1000 (0.11-0.59); MONO% 7.5 % (1.7-9.3); MPV 8.9 FL (7.4-10.4); NEUT# 4.55 X1000 (1.4-6.5); NEUT% 69.9 % (42.2-75.2); PLT 245 X1000 (130-400); RBC 4.19 XMIL (4.2-5.4); RDW 13.9 % (11.5-14.5); WBC 6.51 X1000 (4.8-10.8)
[2018-12-12 07:41] LABS: HEMOGLOBIN A1C 7.4 % (4.8-6.0)
[2018-12-12 07:51] LABS: AGAP 9; ALB/GLOB RATIO 1.3; ALBUMIN 3.6 g/dL (3.5-5.0); ALKALINE PHOSPHATASE 85 U/L (32-104); BUN 18 mg/dL (8-22); CALCIUM 9.4 mg/dL (8.8-10.2); CHLORIDE 95 mmol/L (98-107); COSMO 284; CREATININE 0.6 mg/dL (0.5-0.9); ESTIMATED GFR > 60; GLUCOSE 181 mg/dL (70-104); GOT 23 U/L (10-30); GPT 31 U/L (10-36); SODIUM 139 mmol/L (136-145); TCO2 35 mmol/L (25-35); TOTAL BILIRUBIN 0.35 mg/dL (0.20-1.00); TOTAL PROTEIN 6.4 g/dL (6.3-8.3)
[2018-12-12] MEDS: PRILOSEC PO SCH ×3 (09:17→21:48)
[2018-12-12] MEDS: NEURONTIN PO SCH ×2 (09:17→21:48)
[2018-12-12] MEDS: TYLENOL PO PRN ×2 (09:17→18:41)
[2018-12-12] MEDS: TRINTELLIX PO SCH (09:17)
[2018-12-12] MEDS: ALPHAGAN P 0.15% OPHTH SOLN RIGHT EYE SCH (09:18)
[2018-12-12] MEDS: XALATAN 0.005% OPH SOLN RIGHT EYE SCH (09:18)
[2018-12-12] MEDS: BUMEX PO SCH ×2 (09:18→21:48)
[2018-12-12] MEDS: MAG-OX PO SCH (09:18)
[2018-12-12] MEDS: COZAAR PO SCH (09:18)
[2018-12-12] MEDS: FLEXERIL PO SCH (09:18)
[2018-12-12] MEDS: NICODERM PATCH TD SCH (09:19)
[2018-12-12] MEDS: BREO ELLIPTA 100/25 MCG INH INH SCH (10:49)
[2018-12-12] MEDS: FLONASE NAS SCH ×2 (11:14→21:48)
[2018-12-12] MEDS: CELEBREX PO SCH (13:28)
--- NOTE | 2018-12-12 15:10 | PROGRESS NOTE ---
DATE: 12/12/2018 SUBJECTIVE: Ms. Tan is sleeping and resting comfortably. Easy to arouse. She is on the BiPAP machine. OBJECTIVE: Vital signs: Temperature 98.8 degrees, pulse 91, respirations 20, blood pressure 123/64. HEENT: Pupils are equal and round. Lungs: Clear in all lung pinon. Cardiovascular: Regular rate without murmur or S3. Abdomen: Soft. Skin: Warm and dry. Other vital signs: Blood pressure 125/47, 144/57, 123/64. DIAGNOSTIC STUDIES: Abdominal x-ray: Constipation. Otherwise nonspecific abdomen. Chest x-ray, these were done from yesterday, some cardiomegaly. The patient's panniculus obscures some detail in the lower lung pinon, but there does not appear to be any definite focal opacity. No change from previous exam. EKG shows sinus tachycardia, possible left atrial enlargement. Echocardiogram from 12/09/2018 shows normal left ventricular function. Ejection fraction at least 65%. There is concentric left ventricular hypertrophy. No pericardial effusion. ASSESSMENT AND PLAN: 1. Recent left metatarsal fractures. She is using a boot. 2. Chronic obstructive pulmonary disease (COPD). Secondary to cigarette use and hypoxemia with some CO2 retention. Using the BiPAP. Continue bronchodilators. 3. Morbid obesity with hypercapnia. We need to inquire about sleep studies as an outpatient. Dr. Macario has seen. She has positive obstructive sleep apnea. She has no CPAP secondary to her insurance. Echocardiogram shows normal left ventricular function. 4. Review of her orders: I do not see any change. 5. She has had a history of hypothyroidism, on Synthroid. Appears be euthyroid. 6. Diabetes mellitus with some peripheral neuropathy. Blood sugars appear to be fairly well controlled. cc: MD Giovanni Self MD
[2018-12-12] MEDS: ATARAX PO PRN (21:48)
[2018-12-12] MEDS: SYNTHROID PO SCH (21:48)
[2018-12-12] MEDS: LIPITOR PO SCH (21:48)
[2018-12-13] MEDS: DUONEB (A & A) INH SCH ×2 (03:25→10:20)
[2018-12-13] MEDS: TYLENOL PO PRN ×2 (05:58→11:54)
[2018-12-13] MEDS: HUMALOG SUBQ SCH ×3 (05:59→15:53)
[2018-12-13] MEDS: ATARAX PO PRN (06:11)
[2018-12-13] MEDS: BREO ELLIPTA 100/25 MCG INH INH SCH ×2 (06:20→10:19)
[2018-12-13] MEDS: CELEBREX PO SCH (09:25)
[2018-12-13] MEDS: BUMEX PO SCH (09:26)
[2018-12-13] MEDS: FLEXERIL PO SCH (09:26)
[2018-12-13] MEDS: MAG-OX PO SCH (09:26)
[2018-12-13] MEDS: NICODERM PATCH TD SCH (09:26)
[2018-12-13] MEDS: COZAAR PO SCH (09:26)
[2018-12-13] MEDS: PRILOSEC PO SCH (09:26)
[2018-12-13] MEDS: FLONASE NAS SCH (09:27)
[2018-12-13] MEDS: TRINTELLIX PO SCH (09:27)
[2018-12-13] MEDS: ALPHAGAN P 0.15% OPHTH SOLN RIGHT EYE SCH (09:31)
[2018-12-13] MEDS: XALATAN 0.005% OPH SOLN RIGHT EYE SCH (09:42)
[2018-12-13] MEDS: NEURONTIN PO SCH (09:45)
[2018-12-13] MEDS: BASAGLAR SUBQ SCH (09:48)
--- NOTE | 2018-12-13 10:00 | DISCHARGE SUMMARY ---
ADMISSION DATE: 12/08/2018 DISCHARGE DATE: 12/13/2018 FINAL DIAGNOSES: 1. Acute left metatarsal fractures. 2. Inability to walk or bear weight on the left foot. 3. Morbid obesity complicating her mobility status. 4. Type I diabetes mellitus. 5. Essential hypertension. 6. Hyperlipidemia. 7. 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 HISTORY OF PRESENT ILLNESS: Ms. Tan is a 38-year-old, white female, followed by MELISSA Yepez who on the day of admission tripped and fell injuring her left foot. She was unable to walk and was brought to the emergency room by ambulance. She also complained about some dyspnea on exertion and recent increased edema. She admitted to some dietary indiscretions and increased salt intake recently. PHYSICAL EXAMINATION: VITAL SIGNS: Unremarkable. Height is 61 inches. Weight is 319 pounds. NECK: Supple without jugular venous distension. LUNGS: Clear without wheezing. Inspiratory and expiratory phases were approximately equal. CARDIOVASCULAR: There is a regular borderline tachycardia with nondisplaced PMI. ABDOMEN: Distended, felt to be obesity. EXTREMITIES: There is 2+ pitting edema of both hands, arms, feet. DATABASE: CBC: Unremarkable. Chemistry: Remarkable for bicarb of 39, glucose of 240. Liver enzymes: Normal. Albumin 3.9. IMAGIN. Chest x-ray was unremarkable. 2. Left foot x-ray showed nondisplaced fractures in the bases of the 2nd, 3rd and 4th metatarsal bones. HOSPITAL COURSE: Due to her marked obesity and generalized poor physical conditioning, she was unable to walk even with a walker. She was felt to need admission and potential rehab. She was seen by Dr. Marek Delcid, Orthopedic Surgeon, for foot problem. He recommended nonweight bearing of left foot, but full weight bearing of her right foot to protect her left ankle/foot orthosis. He requested follow up in his office two weeks after discharge. For the first 48 hours she was given intravenous Lasix and somewhat of a diuresis, although she remains somewhat edematous. On the morning of 12/11/2018, she was noted to be extremely lethargic and difficult to arouse. Her blood sugar was 217 on fingerstick. She was given a dose of Narcan and immediately woke up and began rambling about being given some heroin. Arterial blood gas showed increased CO2 retention and she was temporarily treated with some bilevel support ventilation. Followup blood gas was much improved. Today she is sitting up in a chair having eaten all of her breakfast and ready to be transferred to rehab. She is alert, talkative, oriented and seemed somewhat remorseful about her drug use. She has been on some hydrocodone tablets in the past and I feel it is best to avoid any sort of narcotics in the future. DISCHARGE MEDICATIONS: 1. Atorvastatin 40 mg q at bedtime. 2. Cyclobenzaprine 10mg p.o. at bedtime. 3. Acetaminophen 650 mg q.6 hours p.r.n. pain. 4. DuoNeb 3 mL by medicated aerosol treatment q.i.d. 5. Bumetanide 1 mg b.i.d. 6. Ciloxan 200 mg daily. 7. Magnesium oxide 400 mg daily. 8. Levothyroxine 50 mcg daily. 9. Nicotine patch 21 mg daily. 10.Losartan 100 mg p.o. q at bedtime. 11.Gabapentin 600 mg p.o. b.i.d. 12.Lantus insulin 48 units subcutaneously b.i.d. at 9:00 a.m. and 9:00 p.m. 13.Fluticasone nasal spray one inhalation each nostril b.i.d. 14.Breo Ellipta one inhalation daily. 15.NovoLog Flex Pen 18 units subcutaneous t.i.d. before meals. 16.Trintellix 20 mg daily. 17.She is also on multiple eye drops for glaucoma with Latanoprost 0.005% one drop in the right eye daily. 18.Brimonidine 0.15% ophthalmic solution one drop in the right eye daily. 19.Travoprost one drop in the right eye at bedtime daily. cc: MD Andreea Riojas CRNP Justin Daigre, MD
[2018-12-13 14:53] VITALS: BP 145/56
--- NOTE | 2018-12-15 19:49 | Extremity Venous Study ---
PROCEDURE NAME: Venous U/S Bilateral Legs - 12/09/2018 BILATERAL LOWER EXTREMITY VENOUS DUPLEX STUDY: REFERRING PHYSICIAN: Dr. Poole. READING PHYSICIAN: Dr. Berger. CINEMA OPERATOR: Tracey. INDICATION: Shortness of breath and leg swelling. FINDINGS: The deep and superficial veins of the lower extremities were imaged throughout their course. They are compressible, patent and without thrombus. INTERPRETATION: No DVT or SVT of either lower extremity. cc: MD Jaiden Vazquez MD Russell T. Barr, MD
--- NOTE | 2018-12-21 09:46 | ED EKG INTERP ---
This chart was entered by Jose Doshi Scribe, acting as scribe for Maria Luisa Patel MD. EKG Interpretation - EKG Time of EKG reading by physician:: 20:31 EKG Read and Signed by:: Maria Luisa Patel EKG Interpretation (*Must complete 3 of following elements*): Abnormal Rate: 102 Rhythm: sinus tachycardia Comments: otherwise normal ECG Attestation - Physician/ MARTA Attestation Patient care was provided by Advanced Practice Provider:: No The physician spent face to face time with patient:: Yes Advanced Practice Provider documentation review:: Supervising physician onsite and consulted in the evaluation and care of this patient. The physician did have a face to face encounter with the patient. This chart was documented by the indicated scribe, (Jose Doshi Scribe) and accurately reflects the services I performed and decisions made by me, Maria Luisa Patel MD, as attested by the provider's signature.
== END 2018-12-13 15:59 | DRG 562 ==
LOC: SUPCPDRO → ED 14:37 → EDIPHOLD 21:30 → 3N 22:43
PROVIDERS: ADMIT Internal Medicine; ATTEND Internal Medicine
CPT/HCPCS: 70450; 71010; 71020; 71045; 71046; 72125; 73030; 73630; 74000; 74018; 80048; 80053; 80101; 80301; 80307; 80324; 80345; 80346; 80353; 80358; 80361; 80365; 81001; 82550; 82805; 82948; 83036; 83605; 83735; 83880; 83992; 84443; 84484; 85025; 85610; 85730; 87040; 87070; 87088; 87205; 93005; 93010; 93306; 93970; 94640; 94660; 94761; 94799; 96374; 96375; 97110; 97162; 99285; A9270; C8929; G0431; G0434; G0479; G0480; J1815; J1940; J2270; J2310; J2405; J7030; Q9957; XXXXX

== ENCOUNTER 2019-01-13 14:11 | Inpatient (IN) ==
--- NOTE | 2019-01-13 15:54 | Diag Imaging Result Doc PS360 ---
EXAM: CHEST-2 VIEWS HISTORY: cough copd TECHNIQUE: PA and Lateral chest x-ray COMPARISON: 12/11/2018 FINDINGS: There is cardiomegaly. Mediastinum is widened but stable possibly related to lipomatosis. The pulmonary vasculature is not congested. Dense consolidation within the left lower lobe is noted suspicious for pneumonia. No effusion. IMPRESSION: Dense consolidation left lower lobe suspicious for pneumonia. Follow-up recommended to document complete clearing. Electronically signed by Tiffany Johnson 01/13/2019 3:51 PM
[2019-01-13 16:01] LABS: INFLUENZA A NEGATIVE (NEGATIVE); INFLUENZA B NEGATIVE (NEGATIVE)
[2019-01-13] MEDS ORDERED: ROCEPHIN 1 GM in NS 50 ML IV ONE (16:26)
[2019-01-13 16:59] LABS: BASO# 0.03 X1000 (0.0-0.2); BASO% 0.3 % (0.0-0.8); EOS# 0.14 X1000 (0.0-0.7); EOS% 1.5 % (0.0-10.0); HEMATOCRIT 44.2 % (37.0-47.0); HEMOGLOBIN 13.4 g/dL (12.0-16.0); IMM GRAN# 0.05 X1000 (0.0-0.04); IMM GRAN% 0.5 % (0.0-0.5); LYMPH# 1.59 X1000 (1.2-3.4); LYMPH% 17.5 % (20.5-51.1); MCH 27.5 PG (27-31); MCHC 30.3 g/dL (33-37); MCV 90.8 FL (81-99); MONO# 0.57 X1000 (0.11-0.59); MONO% 6.3 % (1.7-9.3); MPV 8.9 FL (7.4-10.4); NEUT# 6.73 X1000 (1.4-6.5); NEUT% 73.9 % (42.2-75.2); PLT 281 X1000 (130-400); RBC 4.87 XMIL (4.2-5.4); RDW 14.6 % (11.5-14.5); WBC 9.11 X1000 (4.8-10.8)
[2019-01-13 17:11] LABS: AGAP 6; BUN 17 mg/dL (8-22); CALCIUM 8.9 mg/dL (8.8-10.2); CHLORIDE 99 mmol/L (98-107); COSMO 289; CREATININE 0.6 mg/dL (0.5-0.9); ESTIMATED GFR > 60; GLUCOSE 148 mg/dL (70-104); POTASSIUM 4.4 mmol/L (3.5-5.1); SODIUM 143 mmol/L (136-145); TCO2 37 mmol/L (25-35)
[2019-01-13] MEDS ORDERED: ZOFRAN IV PRN (18:17)
[2019-01-13] MEDS ORDERED: TYLENOL PO PRN (18:17)
[2019-01-13] MEDS ORDERED: NS 1,000 ML IV SCH (18:30)
[2019-01-13] MEDS: DOXYCYCLINE 100 MG in NS 250 ML IV SCH (18:37)
--- NOTE | 2019-01-14 00:27 | HISTORY AND PHYSICAL ---
CHIEF COMPLAINT: Shortness of breath. HISTORY OF PRESENT ILLNESS: The patient is a morbidly obese 38-year-old female who presented to [facility] ER secondary to cough, congestion, shortness of breath. She states she has been sick for about 3 weeks. States 3 to 3.5 weeks ago she started having cough, congestion, shortness of breath, elevated fever. She thought she had the flu, was not seen. However, states symptoms did not resolve and now symptoms have continued to worsen, and that is the reason she came to the ER today. ALLERGIES: Sulfa causing hives. Tramadol causing seizures. MEDICATIONS: Losartan 100, Neurontin 600 twice a day, Lantus 48 twice daily, Alphagan eye drops, Flonase, Breo Ellipta, NovoLog FlexPen, Xalatan, Lipitor, Bumex, Synthroid 50. REVIEW OF SYSTEMS: Positive cough, congestion, shortness of breath. She is on oxygen at home. Has insulin for her diabetes, notes her blood sugars have been elevated. She has had chest tightness, productive cough, moderate in intensity, low-grade fevers, chills, increased work of breathing, increased shortness of breath. Denies any dysuria, frequency, or urgency. Denies any hesitancy, polyuria or polydipsia. Denies any skin rashes, weight loss or weight gain. 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 PAST SURGICAL HISTORY: Appendectomy, cholecystectomy, , breast biopsy. FAMILY HISTORY: Noncontributory. SOCIAL HISTORY: The patient continues to smoke approximately a pack a day. Denies alcohol or other illicit substances. PHYSICAL EXAMINATION: VITAL SIGNS: Temperature 99.1 degrees, pulse 108, respiratory 20, BP 101/71, sat 91% on room air. GENERAL: Patient is morbidly obese. She is currently in minimal respiratory distress. She is coughing, does appear short of breath. HEENT: Normocephalic. NECK: Supple. CARDIOVASCULAR: Regular rate. CHEST: Decreased breath sounds, left greater than right. Positive rhonchi. No current crackles. ABDOMEN: Soft, nondistended, obese, nontender. EXTREMITIES: Moves all extremities. Does have trace edema. SKIN: Warm, dry, no rashes. NEUROLOGIC: Patient is awake, alert, oriented. LABS: Reviewed. ASSESSMENT: 1. Left lower lobe infiltrate consistent with pneumonia. 2. Chronic obstructive pulmonary disease. 3. Chronic hypoxic respiratory failure. 4. Morbid obesity. 5. Hypertension. 6. Diabetes. 7. Chronic neuropathy. PLAN: We will continue patient in the hospital. Place her on antibiotics, IV fluids as needed, breathing treatments. Continue home medications. Further orders as needed. cc: Eduardo Viramontes MD
--- NOTE | 2019-01-14 01:45 | PROVIDER DOCUMENTATION ---
This chart was entered by Rose Quintero Scribe, acting as scribe for Colleen Hall MD. HPI-Respiratory General - General Chief Complaint: Cough Stated Complaint: CONGESTION Time Seen by Provider: 01/13/19 16:15 Source: patient Allergies/Adverse Reactions: Patient Allergies Allergy/AdvReac Type Severity Reaction Status Date / Time Sulfa (Sulfonamide Allergy Intermediate HIVES Verified 11/24/18 15:57 Antibiotics) tramadol AdvReac Mild PSEUDOSEIZU Verified 11/24/18 15:57 RES Home Medications: Home Medication List Medication Instructions Recorded Confirmed Last Taken Type Losartan Potassium 100 mg PO QHS 03/28/17 01/13/19 12/07/18 20:00 History Gabapentin [Neurontin] 600 mg PO BID 08/19/17 01/13/19 12/08/18 07:00 History Insulin Glargine [Lantus] 46 unit SUBQ BID 11/14/17 01/13/19 12/08/18 07:00 History Brimonidine 0.15% Ophth Soln 1 drop RIGHT EYE BID 12/08/18 01/13/19 12/08/18 07:00 History [Alphagan P 0.15% Ophth Soln] Fluticasone 50 Mcg Nasal [place] 1 puff IH BID 12/08/18 01/13/19 12/08/18 07:00 History [Flonase] Fluticasone/Vilanterol [Breo 1 puff IH DAILY 12/08/18 01/13/19 12/08/18 07:00 H istory Ellipta 100-25 Mcg INH] Insulin Aspart [Novolog Flexpen] 18 unit SQ AC 12/08/18 01/13/19 12/08/18 07:00 History Travoprost [Travatan Z] 1 drop RIGHT EYE QHS 12/08/18 01/13/19 12/07/18 20:00 History Vortioxetine Hydrobromide 20 mg PO DAILY 12/08/18 01/13/19 12/08/18 07:00 History [Trintellix] ATORVAstatin [Lipitor] 40 mg PO QHS tablet 12/13/18 01/13/19 Unknown Rx Acetaminophen [Tylenol] 650 mg PO Q6H PRN PRN tablet 12/13/18 01/13/19 Unknown Rx Albuterol 2.5MG/Ipratrop 0.5MG [id number] neb 12/13/18 01/13/19 Unknown Rx [Duoneb (A & A)] Bumetanide [Bumex] 1 mg PO BID tablet 12/13/18 01/13/19 Unknown Rx Cyclobenzaprine [Flexeril] 10 mg PO QHS tablet 12/13/18 01/13/19 Unknown Rx Nicotine Patch [Nicoderm Patch] 21 mg TD DAILY patch.td24 12/13/18 01/13/19 Unknown Rx Celecoxib [Celebrex] 200 mg PO QAM 01/13/19 01/13/19 Unknown History Clonidine [Catapres] 0.1 mg PO HS 01/13/19 01/13/19 Unknown History Hydroxyzine [Atarax] 50 mg PO TID PRN 01/13/19 01/13/19 Unknown History Levothyroxine [Synthroid] 50 microgm PO QAM 01/13/19 01/13/19 Unknown History Paliperidone Palmitate [Invega 234 mg IM ORDERED 01/13/19 01/13/19 12/20/18 09:00 History Sustenna] - History of Present Illness-Resp Nature of Presenting Problem: Patient is a 38 year old female who presents to the ED with shortness of breath. Patient states cough and fever. Patient states taking Tylenol for fever. Patient states history of diabetes and COPD. Patient states she takes insulin for diabetes and she is on 2 L of oxygen 01/06. Patient does not report chest pain. Quality of Pain: reports: tightness Severity in ED: reports: mild Onset/Duration: reports: gradual Timing: reports: still present Cough Quality/Degree: reports: moderate, productive cough, sputum Episode Frequency: frequent episodes Current Respiratory Medication Therapy: Initiated see nurses note Modifying Factors: improves with: nothing Associated Symptoms: reports: cough, fever/chills (fever), shortness of breath Similar Symptoms Previously?: Yes Recently seen or treated by another doctor?: No Review of Systems - Adult - REVIEW OF SYSTEMS - ADULT Constitutional: reports: fever. denies: chills, fatique Eyes: reports: no symptoms reported Ears, Nose, Mouth & Throat: reports: no symptoms reported Cardiovascular: reports: no symptoms reported Respiratory: reports: cough, shortness of breath. denies: wheezing Gastrointestinal: reports: no symptoms reported Genitourinary: reports: no symptoms reported Musculoskeletal: reports: no symptoms reported Integumentary: reports: no symptoms reported Neurological: reports: no symptoms reported Past History - Adult - PAST MEDICAL HISTORY-ADULT Review of Records: reports: Nursing Assessment Review, Medications Reviewed, Social history reviewed & non-contributory. Major Childhood Illnesses: reports: denies history Cardiovascular: reports: HTN Respiratory: reports: COPD, sleep apnea, other (has home o2) Gastrointestinal: reports: Crohn's, GERD, inflammatory bowel disease, other (followed by Dr. 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 on dangers of tobacco.: Discussed manners to quit use, and f/u contacts for add'l counseling. Substance Use: denies Living Situation: family Physical Exam-General - PHYSICAL EXAM-ADULT Initial Vital Signs Reviewed: Yes - CONSTITUTIONAL General Appearance: alert, no apparent distress, obese, other (coughing on exam) - EYES Eyes: PERRL/EOMI - HEAD, EARS, NOSE, MOUTH & THROAT HENMT: normal ENT inspection - RESPIRATORY Respiratory: decreased breath sounds (left), rhonchi (bilateral). negative: crackles - CARDIOVASCULAR Cardiovascular: normal peripheral pulses, regular rate, rhythm - GASTROINTESTINAL (ABDOMEN) Abdominal Exam: normal bowel sounds, non tender, soft - LYMPHATIC Lymphatic: no adenopathy - MUSCULOSKELETAL Back Exam: normal inspection Extremity: non-tender, normal inspection - SKIN Integumentary: normal color, normal turgor, warm/dry - NEUROLOGIC Neurologic: grossly normal - PSYCHIATRIC Psych/Mental Status: normal mood/affect, oriented x 3 Progress - PLAN OF CARE/RESULTS Progress/Plan/Lab Results: Laboratory Results - last 24 hr 01/13/19 01/13/19 01/13/19 15:10 16:37 16:37 WBC RBC Hgb Hct MCV MCH MCHC RDW Std Deviation Plt Count MPV Immature Gran % (Auto) Neut % (Auto) Lymph % (Auto) [place]ell % (Auto) Eos % (Auto) Baso % (Auto) Immature Gran # (Auto) Neut # (Auto) Lymph # (Auto) [place] # (Auto) Eos # (Auto) Baso # (Auto) Sodium 143 Potassium 4.4 Chloride 99 Carbon Dioxide 37 H Anion Gap 6 BUN 17 Creatinine 0.6 Estimated GFR/1.73 m2 > 60 BUN/Creatinine Ratio 28 Glucose 148 H Calculated Osmolality 289 Calcium 8.9 C-React Prot High Sens 1.470 Plasma Lactate Influenza A (Rapid) NEGATIVE Influenza B (Rapid) NEGATIVE 01/13/19 01/13/19 16:37 16:37 WBC 9.11 RBC 4.87 Hgb 13.4 Hct 44.2 MCV 90.8 MCH 27.5 MCHC 30.3 L RDW Std Deviation 14.6 H Plt Count 281 MPV 8.9 Immature Gran % (Auto) 0.5 Neut % (Auto) 73.9 Lymph % (Auto) 17.5 L Howell % (Auto) 6.3 Eos % (Auto) 1.5 Baso % (Auto) 0.3 Immature Gran # (Auto) 0.05 H Neut # (Auto) 6.73 H Lymph # (Auto) 1.59 Howell # (Auto) 0.57 Eos # (Auto) 0.14 Baso # (Auto) 0.03 Sodium Potassium Chloride Carbon Dioxide Anion Gap BUN Creatinine Estimated GFR/1.73 m2 BUN/Creatinine Ratio Glucose Calculated Osmolality Calcium C-React Prot High Sens Plasma Lactate 0.7 Influenza A (Rapid) Influenza B (Rapid) Orders Category Date Time Status Admit - [facility] Routine AdmDCTranf 01/13/19 18:12 Active Activity - Up with Assistance ORDERED Care 01/13/19 18:12 Completed DVT/PE Risk Assess/Protocol [QM] ORDERED Care 01/13/19 18:12 Completed Elevate Head of Bed DIRECTED Care 01/13/19 18:12 Completed Encourage Fluids DIRECTED Care 01/13/19 18:12 Completed FSBS/Accucheck Result AC + HS Care 01/13/19 18:12 Active Intake and Output-Strict Q 8-HR ASSESS Care 01/13/19 18:12 Active Nursing- Assist w/ IS as order ORDERED Care 01/13/19 18:13 Active Turn, Cough and Deep Breathe Q2HR Care 01/13/19 18:12 Active Vital Signs Order Q 8-HR ASSESS Care 01/13/19 18:12 Active Z-Document. for Tele Applied ORDERED Care 01/13/19 18:13 Completed Diabetic Diet Diet 01/13/19 17:29 Active CHEST-2 VIEWS [RAD] Routine Exams 01/14/19 06:00 Ordered CHEST-2 VIEWS [RAD] Stat Exams 01/13/19 15:12 Completed A1C HGB W EST AVG GLUCOSE [CHEM] Routine Lab 01/14/19 05:00 Ordered BLOOD CULTURE [BLDCUL] Stat Lab 01/13/19 16:37 Results BMP [BASIC METABOLIC PANEL] [CHEM] Stat Lab 01/13/19 16:37 Completed CBC WITH ELECTRONIC DIFF [HEME] Stat Lab 01/13/19 16:37 Completed CBC WITH NO DIFF [HEME] Routine Lab 01/14/19 06:00 Ordered COMPREHENSIVE METABOLIC PANEL [CHEM] Routine Lab 01/14/19 06:00 Ordered CRP HIGH SENSITIVITY Stat Lab 01/13/19 16:37 Completed Flu [INFLUENZA SCREEN PL] Stat Lab 01/13/19 15:10 Completed LACTATE, PLASMA [CHEM] Stat Lab 01/13/19 16:37 Completed MAGNESIUM [CHEM] Routine Lab 01/14/19 05:00 Ordered SPUTUM CULTURE WITH GRAM STAIN [RM] Routine Lab 01/13/19 21:36 Ordered TSH Routine Lab 01/14/19 05:00 Ordered 0.9% Sodium Chloride Inj [Ns] 1,000 ml Med 01/13/19 18:30 Active IV 75 mls/hr Acetaminophen [Tylenol] Med 01/13/19 18:17 Active 650 mg PO Q6H PRN PRN Albuterol 2.5MG/Ipratrop 0.5MG [Duoneb (A & A)] Med 01/13/19 18:17 Active 3 ml INH Q4H PRN PRN CefTRIAXONE [Rocephin] 1 gm Med 01/13/19 16:26 Discontinued 0.9% Sodium Chloride Inj [Ns] 50 ml IV NOW CefTRIAXONE [Rocephin] 1 gm Med 01/14/19 17:00 Active 0.9% Sodium Chloride Inj [Ns] 50 ml IV Q24H Doxycycline 100 mg Med 01/13/19 18:30 Active 0.9% Sodium Chloride Inj [Ns] 250 ml IV Q12H Ondansetron [Zofran] Med 01/13/19 18:17 Active 4 mg IV Q4-6H PRN PRN Aerosol Treatments Routine Ot 01/13/19 18:18 Completed Aerosol Treatments Stat Oth 01/13/19 18:18 Completed Incentive Spirometer Routine Ot 01/13/19 18:12 Completed Oxygen Device Routine Ot 01/13/19 18:12 Completed Pulse Oximetry Routine Ot 01/13/19 18:12 Completed Telemetry [OM.EQ] Routine Ot 01/13/19 18:12 Active Transfer/Admit Order [TRANSFER] Routine Transfer 01/13/19 18:40 Completed Result Diagrams: 01/13/19 16:37 01/13/19 16:37 - XRAY 1 XRAY Study: Chest Impression: See EMR Report ( EXAM: CHEST-2 VIEWS HISTORY: cough copd TECHNIQUE: PA and Lateral chest x-ray COMPARISON: 12/11/2018 FINDINGS: There is cardiomegaly. Mediastinum is widened but stable possibly related to lipom atosis. The pulmonary vasculature is not congested. Dense consolidation within the left lower lobe is noted suspicious for pneumonia. No effusion. IMPRESSION: Dense consolidation left lower lobe suspicious for pneumonia. Follow-up recommended to document complete clearing. Electronically signed by Tiffany Johnson 01/13/2019 3:51 PM 01/13/19 1551 Interpreting Physician: Tiffany Johnson MD Dictated Date/Time: 01/13/19 1548 cc: Sissy Dahl MD; Jeanna Lieberman MD) - CONSULTS/PCP/HOSPITALIST Notification #1 *Consult/PCP/Hospitalist*: Dr. Viramontes Time Discussed: 16:58 Reason/Comments: Dr. Wilde consulted with Dr. Viramontes about patient. Consult Disposition: Admit (Hx, PE, patient care discussed with Dr. Viramontes.accepted.) Departure - Departure Date of Disposition Decision: 01/13/19 Time of Disposition Decision: 16:58 DIAGNOSIS: Pneumonia Qualifiers: Pneumonia type: due to unspecified organism Laterality: left Lung location: lower lobe of lung Qualified Code(s): J18.1 - Lobar pneumonia, unspecified organism Disposition: ADMITTED INPATIENT 09 Certified Medical Emergency: Emergent Condition: Fair - Critical Care Note This patient required my direct & personal management of CC.: No Attestation - Physician/ MARTA Attestation Patient care was provided by Advanced Practice Provider:: No The physician spent face to face time with patient:: Yes Advanced Practice Provider documentation review:: Supervising physician onsite and consulted in the evaluation and care of this patient. The physician did have a face to face encounter with the patient. This chart was documented by the indicated scribe, (Rose Quintero Scribe) and accurately reflects the services I performed and decisions made by me, Colleen Hall MD, as attested by the provider's signature.
[2019-01-14] MEDS ORDERED: ATARAX PO PRN ×2 (06:51→09:00)
[2019-01-14 07:00] LABS: HEMATOCRIT 42.7 % (37.0-47.0); HEMOGLOBIN 12.7 g/dL (12.0-16.0); MCH 27.3 PG (27-31); MCHC 29.7 g/dL (33-37); MCV 91.8 FL (81-99); RBC 4.65 XMIL (4.2-5.4); RDW 14.4 % (11.5-14.5)
[2019-01-14 07:05] LABS: HEMOGLOBIN A1C 7.4 % (4.8-6.0)
--- NOTE | 2019-01-14 07:13 | Diag Imaging Result Doc PS360 ---
EXAM: CHEST-2 VIEWS - 01/14/2019 HISTORY: Pneumonia TECHNIQUE: Chest two views COMPARISON: 01/13/2019 FINDINGS: There is stable cardiomegaly. There is consolidation with atelectasis at the anterior left lower lobe. This appears of decreased mildly. There are no other interval changes identified. IMPRESSION: Mild decrease in left lower lobe consolidation. Electronically signed by Garry Ayala 01/14/2019 7:10 AM
[2019-01-14 07:20] LABS: AGAP 10; ALBUMIN 3.5 g/dL (3.5-5.0); ALKALINE PHOSPHATASE 126 U/L (32-104); BUN 17 mg/dL (8-22); CALCIUM 8.5 mg/dL (8.8-10.2); CHLORIDE 98 mmol/L (98-107); COSMO 296; CREATININE 0.6 mg/dL (0.5-0.9); ESTIMATED GFR > 60; GLUCOSE 375 mg/dL (70-104); GOT 25 U/L (10-30); GPT 37 U/L (10-36); POTASSIUM 4.7 mmol/L (3.5-5.1); SODIUM 140 mmol/L (136-145); TCO2 33 mmol/L (25-35); TOTAL PROTEIN 6.7 g/dL (6.3-8.3)
[2019-01-14] MEDS: DUONEB (A & A) INH PRN ×4 (08:00→19:31)
[2019-01-14] MEDS ORDERED: ALPHAGAN P 0.15% OPHTH SOLN RIGHT EYE SCH (09:00)
[2019-01-14] MEDS: CELEBREX PO SCH (09:30)
[2019-01-14] MEDS: TRINTELLIX PO SCH (09:31)
[2019-01-14] MEDS: SYNTHROID PO SCH (09:31)
[2019-01-14] MEDS: NEURONTIN PO SCH ×2 (09:31→20:27)
[2019-01-14] MEDS: ALPHAGAN 0.2% OPHTH SOLN RIGHT EYE SCH ×2 (09:31→20:27)
[2019-01-14] MEDS: FLONASE NAS SCH ×2 (09:31→20:27)
[2019-01-14] MEDS: BUMEX PO SCH ×2 (09:31→20:28)
[2019-01-14] MEDS: NICODERM PATCH TD SCH (09:32)
[2019-01-14] MEDS: DOXYCYCLINE 100 MG in NS 250 ML IV SCH (09:51)
[2019-01-14] MEDS: BASAGLAR SUBQ SCH ×2 (10:00→21:51)
[2019-01-14] MEDS: TYLENOL PO PRN ×2 (10:13→22:48)
[2019-01-14] MEDS: HUMALOG (PARKWAY) SUBQ SCH ×3 (10:52→16:44)
[2019-01-14] MEDS: BREO ELLIPTA 100/25 MCG INH INH SCH (11:34)
[2019-01-14] MEDS ORDERED: ROCEPHIN 1 GM in NS 50 ML IV SCH (17:00)
[2019-01-14] MEDS: OMNICEF PO SCH (20:28)
[2019-01-14] MEDS: DOXYCYCLINE PO SCH (20:28)
[2019-01-14] MEDS ORDERED: CATAPRES PO SCH (21:00)
[2019-01-14] MEDS ORDERED: FLEXERIL PO SCH (21:00)
[2019-01-14] MEDS ORDERED: TRAVATAN 0.004% OPH SOLN RIGHT EYE SCH (21:00)
[2019-01-14] MEDS ORDERED: COZAAR PO SCH (21:00)
[2019-01-14] MEDS ORDERED: LIPITOR PO SCH (21:00)
--- NOTE | 2019-01-14 23:34 | PROGRESS NOTE ---
DATE: 01/14/2019 SUBJECTIVE: The patient notes she is still having shortness of breath, cough and congestion. Still having some difficulty breathing. Denies any fevers or chills. Denies any production to her cough. OBJECTIVE: Temperature 98 degrees, pulse 102, respiratory rate 18, BP 142/57. General: The patient is a morbidly obese female who currently is still in mild respiratory distress. HEENT: Normocephalic. Neck supple. CV: Regular rate. Chest: Decreased breath sounds bilaterally. Positive wheezing throughout. No crackles. Positive rhonchi. Abdomen is soft, obese, nontender. Extremities: Trace edema. Skin warm and dry. No rashes. ASSESSMENT: 1. Left lower lobe pneumonia. 2. Chronic obstructive pulmonary disease with mild exacerbation. 3. Chronic hypoxic respiratory failure. 4. Morbid obesity. 5. Hypertension. 6. Diabetes. 7. Chronic neuropathy. PLAN: Continue antibiotics, breathing treatments, oxygen and will follow. Hopefully home over the next few days. cc: Eduardo Viramontes MD
[2019-01-15] MEDS: HUMALOG (PARKWAY) SUBQ SCH ×2 (06:10→11:52)
[2019-01-15] MEDS: SYNTHROID PO SCH (06:11)
[2019-01-15] MEDS: TYLENOL PO PRN (06:13)
[2019-01-15] MEDS: DUONEB (A & A) INH PRN ×2 (07:31→11:04)
[2019-01-15] MEDS: BREO ELLIPTA 100/25 MCG INH INH SCH (07:31)
[2019-01-15 08:18] VITALS: BP 140/59
[2019-01-15] MEDS: TRINTELLIX PO SCH (10:38)
[2019-01-15] MEDS: OMNICEF PO SCH (10:38)
[2019-01-15] MEDS: NEURONTIN PO SCH (10:38)
[2019-01-15] MEDS: BASAGLAR SUBQ SCH (10:38)
[2019-01-15] MEDS: CELEBREX PO SCH (10:38)
[2019-01-15] MEDS: DOXYCYCLINE PO SCH (10:38)
[2019-01-15] MEDS: BUMEX PO SCH (10:38)
[2019-01-15] MEDS: NICODERM PATCH TD SCH (10:38)
[2019-01-15] MEDS: FLONASE NAS SCH (10:39)
[2019-01-15] MEDS: ALPHAGAN 0.2% OPHTH SOLN RIGHT EYE SCH (10:39)
--- NOTE | 2019-01-16 07:23 | DISCHARGE SUMMARY ---
ADMISSION DATE: 01/13/2019 DISCHARGE DATE: 01/15/2019 PRIMARY CARE PHYSICIAN: Dr. Jeanna Lieberman. DIAGNOSES: 1. Left lower lobe pneumonia. 2. Chronic obstructive pulmonary disease, on continuous oxygen. 3. Chronic hypoxic respiratory failure. 4. Morbid obesity. 5. Hypertension. 6. Diabetes mellitus. 7. Chronic neuropathy. DIAGNOSTICS: 1. Chest x-ray on 01/13/2019 revealed dense consolidation in the left lower lobe, suspicious for pneumonia. 2. On 01/14/2019, chest x-ray revealed mild decrease in left lower lobe consolidation. HOSPITAL COURSE: Ms. Tan presented to the emergency room complaining of about 3 to 3-1/2 weeks of cough, congestion, and shortness of breath. She did have fevers intermittently. She was found to have left lower lobe pneumonia for which she was initially treated with antibiotic coverage of Rocephin and she has been transitioned to Omnicef and doxycycline for discharge. She has improved and, thankfully, she is ready for discharge today. PHYSICAL EXAMINATION: Discharge Vital Signs: Blood pressure is 140/59, heart rate of 77, respirations are 18, temperature is 97.9 degrees oral, with O2 saturation of 97- 99% on 3 L nasal cannula. Cardiovascular: Regular rate and rhythm. S1 and S2 are appreciated. Extremities: She has no lower extremity edema. Peripheral pulses are palpable x4 extremities. Calves are nontender to palpation. Pulmonary: Breath sounds are diminished throughout but clear with no increased work of breathing noted. Chest rises and falls symmetric with respiration. Gastrointestinal: Abdomen is soft, nontender, nondistended, with bowel sounds in all 4 quadrants. Neurologic: She is alert and oriented x3. Skin: Warm and dry. DISCHARGE MEDICATIONS: 1. Travatan 0.004% one drop in right eye. 2. Alphagan 0.2% ophthalmic solution one drop in right eye b.i.d. 3. Bumex 1 mg p.o. b.i.d. 4. Omnicef 300 mg p.o. b.i.d. for 5 days. 5. Doxycycline 100 mg p.o. b.i.d. for 5 days. 6. Flexeril 10 mg p.o. at bedtime. 7. Clonidine 0.1 p.o. at bedtime. 8. Celebrex 200 mg p.o. q.a.m. 9. Flonase 1 spray b.i.d. 10. Breo Ellipta 100/25 one puff daily. 11. Neurontin 600 mg p.o. b.i.d. 12. Hydroxyzine 50 mg p.o. b.i.d. p.r.n. 13. Basaglar insulin 46 units subcutaneous b.i.d. 14. Synthroid 50 mcg p.o. q.a.m. 15. Losartan 100 mg p.o. at bedtime. 16. NicoDerm patch 21 mg daily. 17. Invega 234 mg as directed every 30 days. 18. Trintellix 20 mg p.o. daily FOLLOWUP: She needs to follow up with her primary care physician, Dr. Jeanna Lieberman, in the next 2 to 3 weeks. She needs to call Thursday to schedule an appointment. She was instructed call to be seen sooner or return to the ER for any syncope, dizziness, chest pain, palpitations, temperature greater than 101, increasing shortness of breath, any nausea, vomiting, diarrhea, constipation, black or bloody vomitus or stools, or for any questions or concerns that she may have. She is being discharged home in stable condition with family members. This is a greater than 30 minute discharge. The patient does have her home O2 in the room and she is discharged wearing O2 as prehospitalization. Dictated by MELISSA Escamilla for Eduardo Viramontes MD This chart was documented by, MELISSA Escamilla and accurately reflects the services performed, treatment plan and medical decisions as attested by the providers signature Eduardo Viramontes MD. cc: MELISSA Escamilla MD [facility]
--- NOTE | 2019-01-16 08:59 | DISCHARGE SUMMARY ---
ADMISSION DATE: 01/13/2019 DISCHARGE DATE: 01/15/2019 ADDENDUM: Patient was seen and examined by myself. Full note dictated and discussed with nurse practitioner. Patient, unfortunately, is an extremely noncompliant individual who suffers from morbid obesity and likely pickwickian syndrome. She does not wear her CPAP at home because it is uncomfortable. She was admitted, placed on antibiotics, continued to improve, and, therefore, she will be discharged home. Unfortunately, she is an extremely high readmission risk due to her noncompliance. cc: Eduardo Viramontes MD
[2019-01-17] MEDS ORDERED: INVEGA SUSTENNA IM SCH (15:00)
== END 2019-01-15 16:20 | disposition home or self-care (01) | DRG 194 ==
LOC: P.ED 14:11 → P.MEDSURG 18:44
PROVIDERS: ATTEND Family Medicine
CPT/HCPCS: 36415; 71020; 71046; 80048; 80053; 82948; 83036; 83605; 83735; 84443; 85025; 85027; 86141; 87040; 87070; 87205; 87275; 87276; 87804; 94640; 94761; 94799; 96365; 96375; 99285; A9270; J0696; J1815; J7030; J7050; XXXXX